=== PATIENT | female | born 1945 | race Caucasian/White ===

== ENCOUNTER 2024-09-08 09:24 | Outpatient (AMB) | payer OTHER, SELFPAY ==
--- NOTE | 2024-09-08 09:34 | A.OFFPC_ITS ---
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 Intake Note: establish care Is last menstrual period known: No Post menopausal: Yes Patient : No Allergies Penicillins Allergy (Intermediate, Verified 09/08/24 09:35) Hives Sulfa (Sulfonamide Antibiotics) Allergy (Intermediate, Verified 09/08/24 09:37) Hives azithromycin Adverse Reaction (Intermediate, Verified 09/08/24 09:37) Vomiting doxycycline Adverse Reaction (Intermediate, Verified 09/08/24 09:37) Vomiting Tobacco use date assessed: 09/08/24 Fall risk assessment: No Falls in past year Last assessed Fall Risk: 09/08/24 Dental Screening Dental Screen Date: 09/08/24 Did you have a dental visit in the last 12 months?: Yes Did you have a dental problem in the last 6 months where you did not have access to dental care?: No HPI HPI Comments History of Present Illness Details The patient is a 79-year-old female presenting with [facility] She transferred from [facility]. Her medical records have not yet been received. Her medical history includes essential hypertension, previously on amlodipine therapy, resulting in ankle edema, which improved with a transition to carvedilol 6.25 mg twice daily. The patient's hypertension has been more easily controlled since this modification, with recent readings at 130/80 mmHg. She has prediabetes, and she is interested in medication for prediabetes and weight management. Lifestyle modifications have been ineffective. Hyperlipidemia is managed with rosuvastatin at 5 mg, previously adjusted due to muscle cramping. There is a history of hypothyroidism with past vitamin D deficiency requiring high-dose supplementation. Osteopenia was suspected in the past, though not officially diagnosed by dual-energy x-ray absorptiometry (DXA) scanning; the last scan was more than 6-7 years ago, and the patient reports a loss of approximately 2 inches in height. The patient experiences lumbar spondylosis, scoliosis, compression, and herniated discs, leading to back pain and right hip pain initially diagnosed as bursitis but questioning the accuracy of this diagnosis. Interventions have included physical therapy, with variable results. Previous imaging could not identify any arthritis in the hips. She confirms regular cardiac follow-ups for a heart murmur, maintains routine mammography scheduling, and has had no recent ER or hospital visits aside from [facility] visits for right hip and back pain. We also discussed referral to Gynecology for an annual exam. She will contact Gynecology to schedule an appointment. Patient was informed and verbally consented to the use of an ambient scribe for clinic note documentation during this visit. ROS: - Musculoskeletal: Reports right hip ladonna n not alleviated by joint injection; reports back pain managed with physical therapy; denies any new musculoskeletal symptoms. - Gastrointestinal: Denies any new or wo rsening symptoms. - Neurological: Denies any recent change s in neurological symptoms. - Cardiovascular: Denies any recent ches t pain or palpitations. - Genitourinary: Denies any recent probl ems; past hysterectomy with an ovary left in situ. - Endocrine: Reports past vitamin D defi ciency. PE: Constitutional: Alert, in no distress. Head: Normocephalic. Neck: Supple, Full range of motion. No lymphadenopathy. No palpable thyroid masses. Respiratory: Clear to auscultation. Cardiovascular: S1 S2 regular. Systolic murmur noted. Neurologic: No focal neurological deficits. Extremities: Warm and well perfused. Trace bilateral ankle edema. Psychiatric: Normal mood and affect. [facility] Medical History (Updated 09/08/24 @ 14:16 by TYLER Villafana) Colon polyps Vitamin D deficiency Prediabetes Essential hypertension Hypothyroidism Arthritis Thyroid disease Aortic valvar stenosis Acid reflux Asthma Surgical History (Updated 09/08/24 @ 09:53 by Aliza Ward CMA) History of hand surgery Hx of appendectomy History of hysterectomy H/O rotator cuff surgery Family History (Updated 09/08/24 @ 09:57 by Aliza Ward CMA) Mother High blood pressure High cholesterol Colon cancer Father High blood pressure High cholesterol Prostate cancer Paternal Grandmother High blood pressure Brother High blood pressure High cholesterol Pancreatic cancer Sister High blood pressure High cholesterol Breast cancer Social History Housing: House Patient Tobacco Use Status: Never used Tobacco e-Cigarette/Vaping Use: Never Used Second Hand Smoke Exposure: No service: No Current occupational status: retired Current occupational exposures/hazards: No Cognitive needs: No Hearing needs: No Vision needs: Yes Questionnaire PHQ-9 Over the last 2 weeks, how often have you been bothered by any of the following problems? 1. Little interest or pleasure in doing things: not at all 2. Feeling down, depressed, or hopeless: not at all 3. Trouble falling or staying asleep, or sleeping too much: not at all 4. Feeling tired or having little energy: not at all 5. Poor appetite or overeating: not at all 6. Feeling bad about yourself - or that you are a failure or have let yourself or your family down: not at all 7. Trouble concentrating on things, such as reading the newspaper or watching television: not at all 8. Moving or speaking so slowly that other people could have noticed. Or the opposite - being so fidgety or restless that you have been moving around a lot more than usual: not at all 9. Thoughts that you would be better off or of hurting yourself in some way: not at all Total score: 0 Depression Screening Interpretation: Negative Depression Screening Done: Yes 83916 - PHQ-9 Billing: Yes Source: Developed by Drs. Michele Chahal, Charlotte Garcia, Axel Bianchi and colleagues, with an educational mo from [employer]. Thrive Questionnaire Date Thrive assessed: 09/07/24 I am a: Patient What is your living situation today?: I have a steady place to live Within the past 12 months, did the food you bought not last and you didn't have the money to get more?: Never true Within the past 12 months, did you worry whether your food would run out before you got money to buy more?: Never true Do you have trouble paying for medicines?: No Do you have trouble getting transportation to medical appointments?: No Do you have trouble paying your heating and electricity bill?: No Do you have trouble taking care of your child, family member or friend?: No Do you have trouble with day-to-day activities such as bathing, preparing meals, shopping, managing finances, etc.?: No Are you currently unemployed and looking for a job?: No Are you interested in more education?: No Please select the resources that you would like help with: None Currently or been in a relationship where the following occur: No concerns reported THRIVE Score: 0 AUDIT C Alcohol Use Questionnaire (AUDIT-C) 1. How often do you have a drink containing alcohol?: 4 or more times a week 2. How many drinks containing alcohol do you have on a typical day when you are drinking?: 1 or 2 3. How often do you have six or more drinks on one occasion?: Never Total Score: 4 FARNKI-7 AMB Questionnaire FRANKI-7 Date FRANKI - 7 assessed: 09/08/24 Feeling nervous, anxious, or on edge: 0 = Not at all Not being able to stop or control worryin = Not at all Worrying too much about different things: 0 = Not at all Trouble relaxin = Not at all Being so restless that it is hard to sit still: 0 = Not at all Becoming easily annoyed or irritable: 0 = Not at all Feeling afraid as if something awful might happen: 0 = Not at all Total FRANKI-7 score (0-4 normal; 5-9 mild; 10-14 moderate; 15-21 severe): 0 Source: Developed by Drs. Michele Chahal, Charlotte Garcia, Axel Biancih and colleagues, with an educational mo from [employer]. Physical exam (Primary Care) Vital Signs: Last Vital Signs Temp 98.1 F 09/08/24 09:58 Pulse 68 09/08/24 09:58 Resp 14 09/08/24 09:58 BP 130/80 09/08/24 09:58 Pulse Ox 98 09/08/24 09:58 Oxygen Delivery Method Room Air 09/08/24 09:58 BMI result Body Mass Index 30.6 Tobacco/Smoking Status: Tobacco use Status Tobacco use date assessed 09/08/24 09/08/24 10:00 Patient Tobacco Use Status Never used Tobacco 09/08/24 10:00 e-Cigarette/Vaping Use Never Used 09/08/24 10:00 PHQ-9: PHQ-9 Score PHQ-9: Total score 0 09/08/24 14:07 Depression Screening Interpretation: Negative Thrive Assessment: Date of Thrive Assessment Date Thrive assessed 09/07/24 09/08/24 10:00 Currently or been in a relationship where the following occur: No concerns reported Coding Level of Care Code Est Pt Level 4 (31991) Complex EM visit Add On G2211 Diagnoses Essential hypertension I10 Acquired hypothyroidism E03.9 Hypothyroidism type: acquired Arthritis M19.90 Prediabetes R73.03 Vitamin D deficiency E55.9 Nonrheumatic aortic valve stenosis I35.0 Cardiac valve disease etiology: nonrheumatic Additional Codes PHQ-9 - 26576 - PHQ-9 Billing: Yes ([id number]) Assessment & Plan Assessment & Plan (1) Essential hypertension: Code(s): I10 - Essential (primary) hypertension Category: Medical (2) Hypothyroidism: Code(s): E03.9 - Hypothyroidism, unspecified Category: Medical Qualifiers: Hypothyroidism type: acquired Qualified Code(s): E03.9 - Hypothyroidism, unspecified (3) Arthritis: Code(s): M19.90 - Unspecified osteoarthritis, unspecified site Category: Medical (4) Prediabetes: Code(s): R73.03 - Prediabetes Category: Medical (5) Vitamin D deficiency: Code(s): E55.9 - Vitamin D deficiency, unspecified Category: Medical (6) Aortic valvar stenosis: Code(s): I35.0 - Nonrheumatic aortic (valve) stenosis Category: Medical Qualifiers: Cardiac valve disease etiology: nonrheumatic Qualified Code(s): I35.0 - Nonrheumatic aortic (valve) stenosis Plan 1. Essential Hypertension, aortic valve stenosis: The patient?s blood pressure is well-controlled with the current medication regimen. Followed by Cardiology. 2. Prediabetes, obesity: Denies contraindications to GLP 1. Trial of Ozempic 0.25 mg weekly. Side effects and administration reviewed. 3. Hyperlipidemia: Continue rosuvastatin 5 mg with follow-up blood work ordered to assess lipid levels. 4. Gastroesophageal Reflux Disease: Continue current management; no changes discussed. 5. Hypothyroidism: Continued medication; thyroid function tests ordered. 6. Postmenopausal, vitamin-D deficiency: Scheduled for updated DXA scan and vitamin-D level ordered. 7. Lumbar Spondylosis and Right Hip Bursitis: Continue physical therapy; reassess hip pain management if no improvement is observed. Followed by [facility]. Follow up in 6 months. Orders: Orders TSH reflex Free T4 Today E03.9 - Hypothyroidism, unspecified Lipid Panel Today E78.5 - Hyperlipidemia, unspecified Complete Blood Count Auto Diff Today I10 - Essential (primary) hypertension, K21.9 - Gastro-esophageal reflux disease without esophagitis Vitamin D 1,25 dihydroxy Today E55.9 - Vitamin D deficiency, unspecified XR DEXA axial skeleton Today N95.1 - Menopausal and female climacteric states Hemoglobin A1c Today R73.03 - Prediabetes Comprehensive Met. Panel Today E55.9 - Vitamin D deficiency, unspecified, R73.03 - Prediabetes Medications: New semaglutide (Ozempic) for 4 weeks 0.25 mg (0.368 mL) subcut QWEEK 3 mL 0RF Patient Instructions: If insurance covers Ozempic and you start it, please call the office to schedule a 3 month follow up.
[2024-09-08 09:58] VITALS: BP 130/80; PULSE 68; RESP 14; TEMP 36.7; O2SAT 98; BMI 30.6
== END 2024-09-08 10:22 | disposition home or self-care (01) ==
PROVIDERS: PCP Physician Assistant Medical; Visit Provider Physician Assistant Medical
DX: I10 Essential (primary) hypertension (principal); E03.9 Hypothyroidism, unspecified; M19.90 Unspecified osteoarthritis, unspecified site; R73.03 Prediabetes; E55.9 Vitamin D deficiency, unspecified; I35.0 Nonrheumatic aortic (valve) stenosis

== ENCOUNTER → 2024-09-08 09:24 | Outpatient (BNVA) | payer OTHER, SELFPAY | PROVIDERS: PCP Physician Assistant Medical; Visit Provider Physician Assistant Medical | DX: I10 Essential (primary) hypertension (principal); E03.9 Hypothyroidism, unspecified; M19.90 Unspecified osteoarthritis, unspecified site; R73.03 Prediabetes; E55.9 Vitamin D deficiency, unspecified; I35.0 Nonrheumatic aortic (valve) stenosis; E78.5 Hyperlipidemia, unspecified; K21.9 Gastro-esophageal reflux disease without esophagitis; Z79.899 Other long term (current) drug therapy | CPT/HCPCS: 96127 ==

== ENCOUNTER 2024-09-08 10:29 | Outpatient (REF) | payer OTHER, SELFPAY ==
[2024-09-08 14:15] LABS: MANUAL DIFF FLAG NO
[2024-09-08 14:24] LABS: Basophils Percent Auto 0.6 % (0-2); Eosinophils Absolute Auto 0.2 X10*3/uL (0.0-0.4); Eosinophils Percent Auto 2.9 % (0-4); Hematocrit 40.4 % (37.0-47.0); Hemoglobin 13.6 g/dl (12.0-16.0); Imm Gran Abs Auto 0.02 X10*3/uL (0.00-0.03); Imm Gran Pct Auto 0.3 % (0.0-0.4); Lymphocytes Absolute Auto 2.3 X10*3/uL (1.2-4.9); Lymphocytes Percent Auto 34.8 % (20-40); Mean Corpuscular HGB Conc 33.7 g/dl (31.0-35.0); Mean Corpuscular Hemoglobin 32.1 pg (27.0-33.0); Mean Corpuscular Volume 95.3 fL (80.0-98.0); Monocytes Absolute Auto 0.6 X10*3/uL (0.1-1.2); Monocytes Percent Auto 8.6 % (2-11); Neutrophils Absolute Auto 3.5 x10*3/uL (2.0-8.3); Neutrophils Percent Auto 52.8 % (45-73); Platelet Count 254 X10*3/uL (160-400); Red Blood Count 4.24 X10*6/uL (4.20-5.50); White Blood Count 6.6 X10*3/uL (4.8-10.8)
[2024-09-08 14:30] LABS: Estimated Average Glucose 126 mg/dL; Hemoglobin A1C 149.4989 umol/L; Total Hemoglobin (HGBA1C) 3552.2948 umol/L
[2024-09-08 14:59] LABS: Alanine Aminotransferase 45 U/L (0-31); Albumin Level 4.3 g/dL (3.5-5.0); Alkaline Phosphatase 54 U/L (39-117); Anion Gap 10 (12-20); Aspartate Amino Transferase 40 U/L (5-31); Bilirubin Total 0.4 mg/dL (0.0-1.0); Blood Urea Nitrogen 17 mg/dL (9-16); Calcium 9.6 mg/dL (8.4-10.2); Carbon Dioxide 31 mmol/L (22-29); Chloride 102 mmol/L (96-108); Cholesterol 194 mg/dL (<200); Estimated Glomerular Filt Rate > 60; Glucose Random 122 mg/dL (60-115); HDL Cholesterol 56 mg/dL (>40); LDL Cholesterol Calculated 115 mg/dL (<100); Sodium 139 mmol/L (135-145); Total Protein 7.5 g/dL (6.5-8.0); Triglycerides 115 mg/dL (<150)
[2024-09-08 15:17] LABS: TSH reflex Free T4 1.07 uIU/mL (0.32-4.0)
[2024-09-12 07:54] LABS: VITAMIN D (1,25 OH) D3 40 pg/mL; Vit D (1,25-Dihydroxy) Total 40 pg/mL (18-72); Vitamin D (1,25 OH) D2 <8 pg/mL
== END 2024-09-08 10:30 | disposition home or self-care (01) ==
LOC: HO.WFDLDS 10:29
PROVIDERS: Visit Provider Physician Assistant Medical
DX: E78.5 Hyperlipidemia, unspecified (principal); E03.9 Hypothyroidism, unspecified; R73.03 Prediabetes; K21.9 Gastro-esophageal reflux disease without esophagitis; I10 Essential (primary) hypertension; E55.9 Vitamin D deficiency, unspecified
CPT/HCPCS: 36415; 80053; 80061; 82652; 83036; 84443; 85025

== ENCOUNTER 2024-10-10 11:42 | Outpatient (AMB) | payer MEDICARE, SELFPAY ==
--- NOTE | 2024-10-10 12:13 | MHC.OFFWIV ---
Intake Vital Signs 10/10/24 12:20 Height 5 ft 3 in Weight 171 lb 2 oz BMI 30.3 BP 134/68 Blood Pressure Location Lt brachial Position Sitting Respiration 12 Pulse 98 Pulse Source Pulse Oximeter Temp 101.0 F H Temp Source Oral Pulse Oximetry (%) 98 Oxygen Delivery Method Room Air Intake Visit Reasons: Urinary tract infection Intake Note: Patient complaining of burning, frequency, urgency urinating, and fever x 3 days. Patient took motrin and advil at 10am. 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 Required: No Allergies Penicillins Allergy (Intermediate, Verified 10/10/24 12:37) Hives Sulfa (Sulfonamide Antibiotics) Allergy (Intermediate, Verified 10/10/24 12:37) Hives azithromycin Adverse Reaction (Intermediate, Verified 10/10/24 12:37) Vomiting doxycycline Adverse Reaction (Intermediate, Verified 10/10/24 12:37) Vomiting Medication List - Last Reconciled 10/10/24 by MISSY Collier- aspirin (Adult Low Dose Aspirin) 81 mg PO DAILY vwickyo-bzakvcbia-tano tabs PO carvedilol 6.25 mg PO BID cholecalciferol (vitamin D3) 2,000 mcg PO QWEEK levothyroxine 100 mcg PO DAILY omeprazole 40 mg PO DAILY rosuvastatin 5 mg PO DAILY semaglutide (Ozempic) 0.25 mg (0.368 mL) subcut QWEEK trazodone 50 mg PO BEDTIME valsartan-hydrochlorothiazide 320-25 mg 1 tab PO DAILY vitamin B complex 1 cap PO DAILY Do you need a note to return to daycare/school/sports/work: No HPI HPI Comments History of Present Illness Details History - The patient is a 79-year-old female presenting with symptoms of a urinary tract infection characterized by urinary urgency, frequency, and dysuria beginning Thursday. - She reported a fever of 100.3?F at home managed with ibuprofen and Advil, rising to 101?F during the visit. - Last UTI occurred more than two decades ago. She used preventive hygiene post-intercourse previously. - Allergic reactions to various antibiotics, cephalexin has been tolerated. Denies n/v, abd pain, vaginal dc/itch. Physical Exam General: Awake, alert. No apparent distress Eyes: Sclera and conjunctiva clear bilaterally Cardiovascular: Regular rate and rhythm, + murmur No CVAT Abd soft, reports pressure over suprapubic area Results - Labs: Urinalysis shows the presence of leukocytes and blood; urine culture ordered for identification and antibiotic sensitivity testing. Discussion Notes During our discussion, I educated the patient on the likely bacterial nature of the urinary tract infection and the importance of taking her prescribed antibiotics, cephalexin, due to her intolerance to other antibiotics. I emphasized the importance of completing the full course and potential side effects, advising her to monitor for any allergic reactions. We discussed the benefits of fluids, Tylenol for fever reduction, and prompt medical attention if symptoms worsen. I explained that the urine culture results will guide further antibiotic choices, which may take 48 to 72 hours. I will communicate any changes through the patient portal. The patient was advised on the proper timing of antibiotic doses, and the patient acknowledged the instructions for managing her UTI. Assessment and Plan 1. Urinary Tract Infection (UTI): Prescribed cephalexin, to take one tablet twice daily for five days. Urine culture ordered to confirm organism and sensitivity; will adjust treatment based on results. Patient Instructions - Take cephalexin as prescribed, one tablet twice a day for five days with food. - Increase fluid intake and use Tylenol for fever management. - Monitor for any signs of allergic reaction; stop medication and seek immediate care if symptoms like hives or severe nausea occur. - Observe symptoms and seek medical attention if fever increases significantly or vomiting occurs. - Await urine culture results for any antibiotic changes and watch the patient portal for communication. Consent I explained the indication, dosage, and potential side effects of cephalexin thoroughly to the patient. I addressed the critical necessity of adherence to prescribed medication despite her known medication sensitivities. The patient provided verbal consent for the plan and intervention as described. I will notify the patient through the portal if there is a need to adjust the treatment based on culture results. Patient was informed and verbally consented to the use of an ambient scribe for clinic note documentation during this visit. Total time spent caring for the patient today was 30 minutes. This includes time spent before the visit reviewing the chart, time spent during the visit, and time spent after the visit on documentation, reviewing laboratory results, diagnostic imaging, medications, performing a medically necessary evaluation, counseling on diagnoses, care coordination, ordering appropriate tests, ordering appropriate medications, review of tests performed by other providers, reporting test results with the patient, communication with other healthcare providers. ON LICENSE OF [facility] Medical History (Updated 10/10/24 @ 12:53 by Nikki Beyer [facility]) Acid reflux Aortic valvar stenosis Arthritis Asthma Colon polyps Elevated liver enzymes Essential hypertension Hypothyroidism Prediabetes Thyroid disease Vitamin D deficiency Surgical History (Updated 09/08/24 @ 09:53 by Aliza Ward CMA) H/O rotator cuff surgery History of hand surgery History of hysterectomy Hx of appendectomy Family History (Updated 09/08/24 @ 09:57 by Aliza Ward CMA) Mother High blood pressure High cholesterol Colon cancer Father High blood pressure High cholesterol Prostate cancer Paternal Grandmother High blood pressure Brother High blood pressure High cholesterol Pancreatic cancer Sister High blood pressure High cholesterol Breast cancer Social History Housing: House Patient Tobacco Use Status: Never used Tobacco e-Cigarette/Vaping Use: Never Used Second Hand Smoke Exposure: No service: No Current occupational status: retired Current occupational exposures/hazards: No Cognitive needs: No Hearing needs: No Vision needs: Yes Physical Exam Vital Signs: Last Vital Signs Temp 101.0 F H 10/10/24 12:20 Pulse 98 10/10/24 12:20 Resp 12 10/10/24 12:20 BP 134/68 10/10/24 12:20 Pulse Ox 98 10/10/24 12:20 Oxygen Delivery Method Room Air 10/10/24 12:20 BMI result Body Mass Index 30.3 Results AMB Urinalysis, Automated UA Leukoctes 125 Simi/uL Last Edit by Jaqueline Dejesus on 10/10/24 12:48 UA Nitrite Negative Last Edit by Jaqueline Dejesus on 10/10/24 12:48 UA Urobilinogen 3.5 mg/dL Last Edit by Jaqueline Dejesus on 10/10/24 12:48 UA Protein 0.3 mg/dL Last Edit by Jaqueline Dejesus on 10/10/24 12:48 UA pH 5.5 Last Edit by Jaqueline Dejesus on 10/10/24 12:48 UA Blood 25 Jamil/uL Last Edit by Jaqueline Dejesus on 10/10/24 12:48 UA Specific [place] 1.015 Last Edit by Jaqueline Dejesus on 10/10/24 12:48 UA Ketone Negative Last Edit by Jaqueline Dejesus on 10/10/24 12:48 UA Bilirubin 0 mg/dL Last Edit by Jaqueline Dejesus on 10/10/24 12:48 UA Glucose 0 mg/dL Last Edit by Jaqueline Dejesus on 10/10/24 12:48 Assessment & Plan Assessment & Plan (1) UTI (urinary tract infection): Code(s): N39.0 - Urinary tract infection, site not specified Qualifiers: Urinary tract infection type: acute cystitis Hematuria presence: with hematuria Qualified Code(s): N30.01 - Acute cystitis with hematuria Plan . Orders: Orders Urine Culture Today N39.0 - Urinary tract infection, site not specified AMB Urinalysis Automated Today Z13.9 - Encounter for screening, unspecified Medications: New cephalexin i am aware of her allergies she has taken this before and done fine 500 mg PO Q12H 5 days 10 caps 0RF Coding Level of Care Code Est Pt Level 4 (42331) Diagnoses Acute cystitis with hematuria N30.01 Urinary tract infection type: acute cystitis Hematuria presence: with hematuria
[2024-10-10 12:20] VITALS: BP 134/68; PULSE 98; RESP 12; TEMP 38.3; O2SAT 98; BMI 30.3
--- OUTSIDE RECORDS SUMMARY | 2024-10-10 13:33 | XMS_ITS | Clinical Summary ---
Author Organization [facility] Facility Address [address] [place] [address] Care Team Providers Care Rn Relief Charge Name Role Phone Mily Lim PA-C Primary Care Provider [phone] Social History Tobacco Use Types Packs/Day Years Used Date Smoking Tobacco: Never Assessed Comments Unknown Sex and Gender Information Value Date Recorded Sex Assigned at Not on file Legal Sex Female 7:57 AM EDT Gender Identity Not on file Sexual Orientation Not on file Plan of Treatment Health Maintenance Due Date Last Done Comments Pneumococcal Vaccine: 65+ Ye ars (1 of 1 - PCV) 2011 Influenza Vaccine (#1) 2024 Hepatitis B Vaccine Aged Out No longe r eligible based on patient's age to complete this topic Insurance [facility] Care Teams Rn Relief Charge Relationship Specialty Start Date End Date Mily Lim PA-C [address] [place] [id number] PCP - General Internal Medicine 03/06/22
== END 2024-10-10 12:54 | disposition home or self-care (01) ==
LOC: HO.HMCWIW 11:42
PROVIDERS: PCP Physician Assistant Medical; Visit Provider Nurse Practitioner Family
DX: N30.01 Acute cystitis with hematuria (principal); Z13.9 Encounter for screening, unspecified

== ENCOUNTER 2024-10-10 11:42 | Outpatient (REF) | payer MEDICARE, SELFPAY ==
--- OUTSIDE RECORDS SUMMARY | 2024-10-10 14:23 | XMS_ITS | Clinical Summary ---
Author Organization [facility] Facility Address [address] [place] [address] Care Team Providers Care Lithograph Press Operator Tinware Name Role Phone Mily Lim PA-C Primary Care Provider [phone] Social History Tobacco Use Types Packs/Day Years [...] patient's age to complete this topic Insurance [facility] Care Teams Lithograph Press Operator Tinware Relationship Specialty Start Date End Date Mily Lim PA-C [address] [place] [id number] PCP - General Internal Medicine 03/06/22
== END 2024-10-10 11:43 | disposition home or self-care (01) ==
LOC: HO.LAB 11:42
PROVIDERS: PCP Physician Assistant Medical; Visit Provider Nurse Practitioner Family
DX: N39.0 Urinary tract infection, site not specified (principal); B96.20 Unspecified Escherichia coli [E. coli] as the cause of diseases classified elsewhere
CPT/HCPCS: 81003; 87086; 87088; 87186; 99212

== ENCOUNTER 2024-10-14 09:48 | Outpatient (REF) | payer MEDICARE, SELFPAY ==
--- NOTE | ~2024-10-14 | US_ITS ---
EXAMINATION: US ABDOMEN LIMITED WITH LIVER ELASTOGRAPHY HISTORY: R74.8 - Abnormal levels of other serum enzymes TECHNIQUE: Real-time grayscale ultrasound imaging of the right upper quadrant was performed and images were reviewed. COMPARISON: There are no prior studies for comparison. FINDINGS: Liver: The right lobe of the liver measures 15.7 cm in size. The left lobe of the liver measures 11.0 cm in size. The liver demonstrates increased echotexture, consistent with steatosis. There is focal fatty sparing adjacent to the gallbladder. No focal mass or intrahepatic biliary ductal dilatation is identified. There is normal hepatopedal flow in the portal vein. Ultrasound elastography of the liver was performed with 10 separate measurements of the liver parenchyma with the patient in the supine position. Measurements were obtained approximately 2 cm below Beena's capsule and perpendicular to the capsule. Images are of satisfactory quality. The median shear wave velocity is 1.77 m/s. The interquartile range/median (IQR/median) is 0.09. Gallbladder and biliary tree: The gallbladder is unremarkable, without evidence of calculi, wall thickening, or pericholecystic fluid. There is no sonographic Calderon sign. The common bile duct is normal in caliber measuring 4 mm. Right Kidney: The right kidney measures 10.5 cm in length and demonstrates a prominent column of Norm.. The right kidney is otherwise unremarkable, without evidence of masses, hydronephrosis, or calculi. Pancreas: The pancreatic head, neck, and body are unremarkable. The pancreatic tail is obscured by bowel gas. Abdominal aorta and inferior vena cava: The visualized portions of the abdominal aorta and inferior vena cava are normal in caliber. There is no free fluid in the right upper quadrant. US/US abdomen mcconnell w elastography IMPRESSION: Mild hepatomegaly. Hepatic steatosis. The median shear wave velocity is 1.77 m/s, corresponding to a median liver stiffness of 9.66 kPa. The IQR/median value is 0.09. This is indicative of a quality data set. Findings are indicative of a high elastography value suggestive of compensated advanced chronic liver disease. REFERENCE: Society of Radiologists in Ultrasound Liver Stiffness Thresholds (2020): LIVER STIFFNESS THRESHOLDS: *Shear wave velocity less than 1.3 m/s (Liver Stiffness equal or less than 5 kPa): High probability of being normal. *Shear wave velocity less than 1.7 m/s (Liver Stiffness less than 9 kPa): In the absence of other known clinical signs, rules out compensated advanced chronic liver disease. *Shear wave velocity between 1.7-2.1 m/s (Liver Stiffness 9-13 kPa): Suggestive of compensated advanced chronic liver disease but need further test for confirmation. *Shear wave velocity between 2.1-2.4 m/s (Liver Stiffness 13-17 kPa): Rules in compensated advanced chronic liver disease. *Shear wave velocity greater than 2.4 m/s (Liver Stiffness over 17 kPa): Suggestive of clinically significant portal hypertension. QUALITY OF DATA SET: *IQR/Median value equal or less than 0.15 implies a quality data set. *IQR/Median value over 0.15 implies a poor quality data set. SIGNIFICANT CHANGE FROM PRIOR EXAM: Significant change if liver stiffness measurement is 10% or greater from prior exam. OTHER CONSIDERATIONS: The stage of liver fibrosis may be overestimated in the setting of acute hepatitis, liver inflammation, elevated liver function tests, hepatic vascular congestion, obstructive cholestasis, non-fasting state, and infiltrative diseases such as amyloidosis and lymphoma. In some patients with NAFLD, the liver stiffness thresholds for compensated advanced chronic liver disease may be lower. In causes other than viral hepatitis and NAFLD, liver stiffness thresholds are not well established. Electronically signed by: Michele Parra MD 10/17/2024 07:14 AM [facility] [place]
--- OUTSIDE RECORDS SUMMARY | 2024-10-14 10:40 | XMS_ITS | Clinical Summary ---
Author Organization [facility] Facility Address [address] [place] [address] Care Team Providers Care Guest Services Lead Name Role Phone Mily Lim PA-C Primary Care Provider [phone] Social History Tobacco Use Types Packs/Day Years [...] patient's age to complete this topic Insurance [facility] Care Teams Guest Services Lead Relationship Specialty Start Date End Date Mily Lim PA-C [address] [place] [id number] PCP - General Internal Medicine 03/06/22
== END 2024-10-14 09:49 | disposition home or self-care (01) ==
LOC: HO.US 09:48
PROVIDERS: PCP Physician Assistant Medical; Visit Provider Physician Assistant Medical
DX: R74.8 Abnormal levels of other serum enzymes (principal)
CPT/HCPCS: 76705; 76981

== ENCOUNTER → 2024-10-14 09:49 | Outpatient (BNV) | payer MEDICARE, SELFPAY | PROVIDERS: PCP Physician Assistant Medical; Visit Provider Radiology Diagnostic Radiology | DX: K70.0 Alcoholic fatty liver (principal); R16.0 Hepatomegaly, not elsewhere classified | CPT/HCPCS: 76705 ==

== ENCOUNTER → 2024-10-18 10:00 | Outpatient (BNV) | payer MEDICARE, SELFPAY | PROVIDERS: PCP Physician Assistant Medical; Visit Provider Radiology Diagnostic Radiology | DX: E28.39 Other primary ovarian failure (principal) | CPT/HCPCS: 77080 ==

== ENCOUNTER 2024-10-18 10:04 | Outpatient (REF) | payer MEDICARE, SELFPAY ==
--- NOTE | ~2024-10-18 | MM_ITS ---
EXAMINATION: DXA BONE DENSITY AXIAL HISTORY: Estrogen deficiency TECHNIQUE: Bypass Mobile Dual energy absorptiometry (DEXA) of the lumbar spine, total left hip, and femoral neck was performed. COMPARISON: There are no prior studies for comparison. FINDINGS: The bone mineral density of the lumbar spine is 1.081 with a T-score of -0.7, and a Z-score of 0.7. The bone mineral density of the left total hip is 1.114 with a T-score of 0.8, and a Z-score of 2.5. The bone mineral density of the left femoral neck is 0.961 with a T-score of -0.6, and a Z-score of 13. FRACTURE RISK: The FRAX index suggests a risk of major osteoporotic fracture of 9.6%, and of hip fracture 1.4%. MM/XR DEXA axial skeleton IMPRESSION: Based on bone mineral density, and according to World Health Organization (WHO) criteria, the diagnosis is consistent with normal bone mineral density. All bone density values are in grams per centimeter squared (g/cm2). Statistically, 68% of repeat scans fall within 1 SD (+/- 0.010 g/cm2 for AP spine L1-L4) and 1 SD (+/- 0.012 g/cm2 for femur total) FRAX is a trademark of the [employer] Met[employer] Bone Disease, a World Health Organization (WHO) Collaborating Center. Electronically signed by: Michele Parra MD 10/21/2024 07:11 AM [facility]
--- OUTSIDE RECORDS SUMMARY | 2024-10-18 11:59 | XMS_ITS | Clinical Summary ---
Author Organization [facility] Facility Address [address] [place] [address] Care Team Providers Care Analyst Programmer Name Role Phone iMly Lim PA-C Primary Care Provider [phone] Social History Tobacco Use Types Packs/Day Years [...] age to complete this topic Insurance [facility] Care Teams Analyst Programmer Relationship Specialty Start Date End Date Mily Lim PA-C [address] [place] [id number] PCP - General Internal Medicine 03/06/22
== END 2024-10-18 10:05 | disposition home or self-care (01) ==
LOC: HO.MAMMO 10:04
PROVIDERS: PCP Physician Assistant Medical; Visit Provider Physician Assistant Medical
DX: Z13.820 Encounter for screening for osteoporosis (principal); Z78.0 Asymptomatic menopausal state
CPT/HCPCS: 77080

== ENCOUNTER 2024-10-27 10:25 | Outpatient (REF) | payer MEDICARE, SELFPAY ==
--- OUTSIDE RECORDS SUMMARY | 2024-10-27 13:01 | XMS_ITS | Clinical Summary ---
Author Organization [facility] Facility Address [address] [place] [address] Care Team Providers Care Steffen House Supervisor Name Role Phone Mily Lim PA-C Primary Care Provider [phone] Social History Tobacco Use Types Packs/Day Years [...] patient's age to complete this topic Insurance [facility] Care Teams Steffen House Supervisor Relationship Specialty Start Date End Date Mily Lim PA-C [address] [place] [id number] PCP - General Internal Medicine 03/06/22
[2024-10-27 14:45] LABS: Alanine Aminotransferase 39 U/L (0-31); Amylase 44 U/L (28-100); Aspartate Amino Transferase 38 U/L (5-31); Lipase 76 U/L (8-78)
[2024-10-28 04:03] LABS: HBS Num1 10.79 mIU/mL (0-7.99); HBc Num1 0.13 S/CO (0.00-0.79); HBsAGNum1 0.35 S/CO (0.00-0.99); Hepatitis A Antibody IgM 0.13 Index (0-0.79); Hepatitis B Core Antibody Nonreactive (Nonreactive); Hepatitis B Surface Antigen Negative (Negative); ~HepC Num1 0.17 S/CO (0.00-0.79); ~Hepatitis A Antibody IgM Nonreactive (Nonreactive); ~Hepatitis C Antibody Nonreactive (Nonreactive)
[2024-10-28 04:10] LABS: Hepatitis A Antibody IgM 0.15 Index (0-0.79); ~Hepatitis A Antibody IgM Nonreactive (Nonreactive)
[2024-10-28 05:11] LABS: HBS Num2 10.68 mIU/mL (0-7.99); ~Hepatitis B Surface Antibody GRAYZONE (Nonreactive)
== END 2024-10-27 10:26 | disposition home or self-care (01) ==
LOC: HO.WFDLDS 10:25
PROVIDERS: Visit Provider Physician Assistant Medical
DX: R74.8 Abnormal levels of other serum enzymes (principal); R79.89 Other specified abnormal findings of blood chemistry
CPT/HCPCS: 36415; 82150; 83690; 84450; 84460; 86704; 86706; 86709; 86803; 87340

== ENCOUNTER 2024-11-03 09:06 | Outpatient (AMB) | payer OTHER, SELFPAY ==
--- NOTE | 2024-11-03 09:17 | A.OFFPC_ITS ---
Vital Signs 11/03/24 09:25 Height 5 ft 3 in Weight 172 lb 8 oz BMI 30.6 BP 116/80 Blood Pressure Location Rt brachial Position Sitting Respiration 18 Pulse 79 Pulse Source Pulse Oximeter Pulse Oximetry (%) 94 Oxygen Delivery Method Room Air Intake Visit Reasons: Lab result - see comments Intake Note: Lab results Dross Puller Required: No Allergies Penicillins Allergy (Intermediate, Verified 11/03/24 09:17) Hives Sulfa (Sulfonamide Antibiotics) Allergy (Intermediate, Verified 11/03/24 09:17) Hives azithromycin Adverse Reaction (Intermediate, Verified 11/03/24 09:17) Vomiting doxycycline Adverse Reaction (Intermediate, Verified 11/03/24 09:17) Vomiting Tobacco use date assessed: 11/03/24 Fall risk assessment: No Falls in past year Last assessed Fall Risk: 11/03/24 Dental Screening Dental Screen Date: 09/08/24 HPI HPI Comments History of Present Illness Details The patient is a 79-year-old female with a past medical history of hepatic steatosis, elevated liver enzymes, aortic valve stenosis, vitamin-D deficiency, asthma, prediabetes, hypertension and hypothyroidism presenting for follow up. She was contacted by her wooden shade hardware installer after she had an echocardiogram. They left her a message that aortic stenosis is worse. She has a follow up with her wooden shade hardware installer next week. She has chronic dyspnea on exertion related to aortic stenosis, and she is okay with proceeding with surgery if it is recommended. She denies chest pain, syncope or ankle edema. Her medical history includes essential hypertension, previously on amlodipine therapy, resulting in ankle edema, which improved with a transition to carvedil ol 6.25 mg twice daily. The patient's hypertension has been more easily controlled since this modification, with recent readings at 130/80 mmHg. The patient had elevated liver enzymes. AST and ALT were 40 and 45 respectively on 09/08/2024. She repeated them on 10/27/2024, and they are now 38 and 39 respectively. Pancreatic enzymes are normal. She had negative testing for hepatitis a, B and C infection. She had an ultrasound with elastography on 10/14/2024 which demonstrated mild hepatomegaly habit, hepatic steatosis and elastography findings indicative of compensated advanced chronic liver disease. I referred her to Gastroenterology, but she would like to go to Dr. Stephen whom she sees for colonoscopy. She denies abdominal pain, nausea, vomiting and jaundice. She drinks 1-2 cocktails at night. She has prediabetes. Lifestyle modifications have been ineffective over the past 6 months. I prescribed Ozempic, and a prior authorization needs to be done for this. The pharmacy did not contact us, but they did contact the patient. Her most recent hemoglobin A1c was 6%. Hyperlipidemia is managed with rosuvastatin at 5 mg, previously adjusted due to muscle cramping. Hypothyroidism is treated with levothyroxine 100 mcg daily. The patient experiences lumbar spondylosis, scoliosis, compression, and herniated discs, leading to back pain and right hip pain initially diagnosed as bursitis but questioning the accuracy of this diagnosis. Interventions have included physical therapy, with variable results. Previous imaging could not identify any arthritis in the hips. ROS: - Musculoskeletal: See HPI - Gastrointestinal: Denies any new or wo rsening symptoms. - Neurological: Denies any recent change s in neurological symptoms. - Cardiovascular: Denies any recent ches t pain or palpitations. See HPI - Genitourinary: Denies any recent probl ems; past hysterectomy with an ovary left in situ. PE: Constitutional: Alert, in no distress. Head: Normocephalic. Neck: Supple, Full range of motion. No lymphadenopathy. No palpable thyroid masses. Respiratory: Clear to auscultation. Cardiovascular: S1 S2 regular. II/ Systolic murmur noted. Neurologic: No focal neurological deficits. Extremities: Warm and well perfused. Trace bilateral ankle edema. Psychiatric: Normal mood and affect. [facility] Medical History (Updated 11/03/24 @ 09:54 by TYLER Villafana) Abnormal abdominal CT scan Elevated LFTs Abnormal liver diagnostic imaging Hepatic steatosis Elevated liver enzymes Colon polyps Vitamin D deficiency Prediabetes Essential hypertension Hypothyroidism Arthritis Thyroid disease Aortic valvar stenosis Acid reflux Asthma Surgical History History of hand surgery Hx of appendectomy History of hysterectomy H/O rotator cuff surgery Family History Mother High blood pressure High cholesterol Colon cancer Father High blood pressure High cholesterol Prostate cancer Paternal Grandmother High blood pressure Brother High blood pressure High cholesterol Pancreatic cancer Sister High blood pressure High cholesterol Breast cancer Social History (Updated 11/03/24 @ 09:28 by CHANTELLE [place] Housing: House Alcohol intake: current Patient Tobacco Use Status: Former Tobacco user Cigarettes Per Day: 4 Years Smoked: 2 e-Cigarette/Vaping Use: Never Used Second Hand Smoke Exposure: No service: No Current occupational status: retired Current occupational exposures/hazards: No Cognitive needs: No Hearing needs: No Vision needs: Yes Questionnaire Thrive Questionnaire Date Thrive assessed: 11/03/24 I am a: Patient What is your living situation today?: I have a steady place to live Within the past 12 months, did the food you bought not last and you didn't have the money to get more?: Never true Within the past 12 months, did you worry whether your food would run out before you got money to buy more?: Never true Do you have trouble paying for medicines?: No Do you have trouble getting transportation to medical appointments?: No Do you have trouble paying your heating and electricity bill?: No Do you have trouble taking care of your child, family member or friend?: No Do you have trouble with day-to-day activities such as bathing, preparing meals, shopping, managing finances, etc.?: No Are you currently unemployed and looking for a job?: No Are you interested in more education?: No Please select the resources that you would like help with: None Currently or been in a relationship where the following occur: No concerns reported THRIVE Score: 0 AUDIT C Alcohol Use Questionnaire (AUDIT-C) 1. How often do you have a drink containing alcohol?: Monthly or less 2. How many drinks containing alcohol do you have on a typical day when you are drinking?: 1 or 2 3. How often do you have six or more drinks on one occasion?: Never Total Score: 1 FRANKI-7 AMB Questionnaire FRANKI-7 Date FRANKI - 7 assessed: 09/08/24 Source: Developed by Drs. Michele Chahal, Charlotte Garcia, Axel Bianchi and colleagues, with an educational mo from [employer]. Physical exam (Primary Care) Vital Signs: Last Vital Signs Pulse 79 11/03/24 09:25 Resp 18 11/03/24 09:25 BP 116/80 11/03/24 09:25 Pulse Ox 94 11/03/24 09:25 Oxygen Delivery Method Room Air 11/03/24 09:25 BMI result Body Mass Index 30.6 Tobacco/Smoking Status: Tobacco use Status Tobacco use date assessed 11/03/24 11/03/24 09:21 Patient Tobacco Use Status Former Tobacco user 11/03/24 09:28 e-Cigarette/Vaping Use Never Used 11/03/24 09:28 Thrive Assessment: Date of Thrive Assessment Date Thrive assessed 11/03/24 11/03/24 09:28 Currently or been in a relationship where the following occur: No concerns reported Coding Level of Care Code Est Pt Level 4 (90916) Complex EM visit Add On G2211 Diagnoses Essential hypertension I10 Acquired hypothyroidism E03.9 Hypothyroidism type: acquired Prediabetes R73.03 Nonrheumatic aortic valve stenosis I35.0 Cardiac valve disease etiology: nonrheumatic Assessment & Plan Assessment & Plan (1) Essential hypertension: Code(s): I10 - Essential (primary) hypertension Category: Medical Plan: Well-controlled. Continue low-sodium diet, avoidance of caffeine and current medication. (2) Hypothyroidism: Code(s): E03.9 - Hypothyroidism, unspecified Category: Medical Qualifiers: Hypothyroidism type: acquired Qualified Code(s): E03.9 - Hypothyroidism, unspecified Plan: Continue levothyroxine. (3) Prediabetes: Code(s): R73.03 - Prediabetes Category: Medical Plan: Complications of diabetes reviewed with the patient. Decrease carbs, sugars and portion sizes. Decrease alcohol use. Exercise to promote weight loss. Message will be sent to do prior authorization for Ozempic. (4) Aortic valvar stenosis: Code(s): I35.0 - Nonrheumatic aortic (valve) stenosis Category: Medical Qualifiers: Cardiac valve disease etiology: nonrheumatic Qualified Code(s): I35.0 - Nonrheumatic aortic (valve) stenosis Plan: She has a follow up with her wooden shade hardware installer next week since aortic stenosis has progressed. Plan She has a follow up scheduled with me. Orders: Referrals Gastroenterology Referral K76.0 - Fatty (change of) liver, not elsewhere classified, R79.89 - Other specified abnormal findings of blood chemistry, R93.2 - Abnormal findings on diagnostic imaging of liver and biliary tract Medications: New omeprazole 20 mg PO BID 180 caps 3RF
[2024-11-03 09:25] VITALS: BP 116/80; PULSE 79; RESP 18; O2SAT 94; BMI 30.6
--- OUTSIDE RECORDS SUMMARY | 2024-11-03 09:40 | XMS_ITS | Clinical Summary ---
Author Organization [facility] Facility Address [address] [place] [address] Care Team Providers Care Material Liaison Name Role Phone Mily Lim PA-C Primary Care Provider [phone] Social History Tobacco Use Types Packs/Day Years [...] patient's age to complete this topic Insurance [facility] Care Teams Material Liaison Relationship Specialty Start Date End Date Mily Lim PA-C [address] [place] [id number] PCP - General Internal Medicine 03/06/22
== END 2024-11-03 10:00 | disposition home or self-care (01) ==
LOC: HO.HMCFM 09:07
PROVIDERS: PCP Physician Assistant Medical; Visit Provider Physician Assistant Medical
DX: I10 Essential (primary) hypertension (principal); E03.9 Hypothyroidism, unspecified; R73.03 Prediabetes; I35.0 Nonrheumatic aortic (valve) stenosis

== ENCOUNTER → 2024-11-03 09:06 | Outpatient (BNVA) | payer OTHER, SELFPAY | PROVIDERS: PCP Physician Assistant Medical; Visit Provider Physician Assistant Medical ==

== ENCOUNTER 2025-03-16 08:49 | Outpatient (AMB) | payer OTHER, SELFPAY ==
--- NOTE | 2025-03-16 09:03 | A.OFFPC_ITS ---
Vital Signs 03/16/25 09:12 Height 5 ft 3 in Weight 152 lb BMI 26.9 BP 124/68 Blood Pressure Location Rt brachial Position Sitting Pulse 68 Pulse Source Pulse Oximeter Temp 97.4 F Temp Source Temporal Artery Scan Pulse Oximetry (%) 97 Oxygen Delivery Method Room Air Intake Visit Reasons: med review Intake Note: Melanie presents in the office today for a medication review. Urgency of voiding since starting new medication. Allergies Penicillins Allergy (Intermediate, Verified 03/16/25 09:06) Hives Sulfa (Sulfonamide Antibiotics) Allergy (Intermediate, Verified 03/16/25 09:06) Hives azithromycin Adverse Reaction (Intermediate, Verified 03/16/25 09:06) Vomiting doxycycline Adverse Reaction (Intermediate, Verified 03/16/25 09:06) Vomiting IVP Dye Allergy (Uncoded 03/16/25 09:06) Shortness of Breath Tobacco use date assessed: 03/16/25 Fall risk assessment: 1 Fall in past year Last assessed Fall Risk: 03/16/25 Dental Screening Dental Screen Date: 03/16/25 Did you have a dental visit in the last 12 months?: Yes Did you have a dental problem in the last 6 months where you did not have access to dental care?: No Was dental information given to patient?: Patient has dentist HPI HPI Comments History of Present Illness Details The patient is a 80-year-old female with a past medical history of hepatic steatosis, elevated liver enzymes, aortic valve stenosis, vitamin-D deficiency, asthma, prediabetes, hypertension and hypothyroidism presenting for follow up. Aortic stenosis-followed by Cardiology, Dr. Naidu. Part of Expand trial TAVR program. May have TAVR in march.. She has a stress test and CT scan scheduled this month. She has chronic dyspnea on exertion related to aortic stenosis. She denies chest pain, syncope or ankle edema. Hypertension-previously on amlodipine which resulted in ankle edema. Currently on carvedilol, Farxiga and Entresto. The patient had elevated liver enzymes. She reported drinking 1-2 cocktails per night. AST and ALT were 40 and 45 respectively on 09/08/2024. She repeated them on 10/27/2024, and they are now 38 and 39 respectively. Pancreatic enzymes are normal. She had negative testing for hepatitis a, B and C infection. She had an ultrasound with elastography on 10/14/2024 which demonstrated mild hepatomegaly, hepatic steatosis and elastography findings indicative of com pensated advanced chronic liver disease. She saw [facility] in November. They recommended working on a low-cholesterol diet and avoidance of alcohol. She had a follow up yesterday, and she was told the bloodwork looked great. She has prediabetes. She is taking Ozempic 0.25 mg weekly. She's lost 20 pounds since starting this medication. Hyperlipidemia is managed with rosuvastatin at 5 mg, previously adjusted due to muscle cramping. Hypothyroidism is treated with levothyroxine 100 mcg daily. Patient says that for months since starting Entresto, spironolactone and Farxiga she has experienced urinary frequency and urgency. No dysuria, hematuria, flank pain, fevers or chills. Patient says it is tolerable, but she wants to make sure she does not have an underlying UTI. The patient experiences lumbar spondylosis, scoliosis, compression, and herniated discs, leading to back pain and right hip pain. Interventions have included physical therapy, with variable results. ROS: - Musculoskeletal: See HPI - Gastrointestinal: Denies any new or wo rsening symptoms. - Neurological: Denies any recent change s in neurological symptoms. - Cardiovascular: Denies any recent ches t pain or palpitations. See HPI - Genitourinary: Denies any recent probl ems; past hysterectomy with an ovary left in situ. PE: Constitutional: Alert, in no distress. Head: Normocephalic. Neck: Supple, Full range of motion. No lymphadenopathy. No palpable thyroid masses. Respiratory: Clear to auscultation. Cardiovascular: S1 S2 regular. II/ Systolic murmur noted. Neurologic: No focal neurological deficits. Extremities: Warm and well perfused. Trace bilateral ankle edema. Psychiatric: Normal mood and affect. COUNTS INCLUDE 234 BEDS AT THE [facility] Medical History (Updated 11/03/24 @ 09:54 by TYLER Villafana) Abnormal abdominal CT scan Elevated LFTs Abnormal liver diagnostic imaging Hepatic steatosis Elevated liver enzymes Colon polyps Vitamin D deficiency Prediabetes Essential hypertension Hypothyroidism Arthritis Thyroid disease Aortic valvar stenosis Acid reflux Asthma Surgical History History of hand surgery Hx of appendectomy History of hysterectomy H/O rotator cuff surgery Family History Mother High blood pressure High cholesterol Colon cancer Father High blood pressure High cholesterol Prostate cancer Paternal Grandmother High blood pressure Brother High blood pressure High cholesterol Pancreatic cancer Sister High blood pressure High cholesterol Breast cancer Social History (Updated 03/16/25 @ 09:11 by Ashley Mckeon MA) Housing: House Alcohol intake: current Patient Tobacco Use Status: Former Tobacco user Cigarettes Per Day: 4 Years Smoked: 2 e-Cigarette/Vaping Use: Never Used Second Hand Smoke Exposure: No service: No Current occupational status: retired Current occupational exposures/hazards: No Cognitive needs: No Hearing needs: No Vision needs: Yes Questionnaire Thrive Questionnaire Date Thrive assessed: 11/03/24 I am a: Patient What is your living situation today?: I have a steady place to live Within the past 12 months, did the food you bought not last and you didn't have the money to get more?: Never true Within the past 12 months, did you worry whether your food would run out before you got money to buy more?: Never true Do you have trouble paying for medicines?: No Do you have trouble getting transportation to medical appointments?: No Do you have trouble paying your heating and electricity bill?: No Do you have trouble taking care of your child, family member or friend?: No Do you have trouble with day-to-day activities such as bathing, preparing meals, shopping, managing finances, etc.?: No Are you currently unemployed and looking for a job?: No Are you interested in more education?: No Please select the resources that you would like help with: None Currently or been in a relationship where the following occur: No concerns reported THRIVE Score: 0 FRANKI-7 AMB Questionnaire FRANKI-7 Date FRANKI - 7 assessed: 09/08/24 Source: Developed by Drs. Michele Chahal, Charlotte Garcia, Axel Bianchi and colleagues, with an educational mo from [employer]. Physical exam (Primary Care) Vital Signs: Last Vital Signs Temp 97.4 F 03/16/25 09:12 Pulse 68 03/16/25 09:12 BP 124/68 03/16/25 09:12 Pulse Ox 97 03/16/25 09:12 Oxygen Delivery Method Room Air 03/16/25 09:12 BMI result Body Mass Index 26.9 Tobacco/Smoking Status: Tobacco use Status Tobacco use date assessed 03/16/25 03/16/25 09:15 Patient Tobacco Use Status Former Tobacco user 03/16/25 09:11 e-Cigarette/Vaping Use Never Used 03/16/25 09:11 Thrive Assessment: Date of Thrive Assessment Date Thrive assessed 11/03/24 03/16/25 09:07 Currently or been in a relationship where the following occur: No concerns reported Coding Level of Care Code Est Pt Level 4 (23341) Complex EM visit Add On G2211 Diagnoses Essential hypertension I10 Acquired hypothyroidism E03.9 Hypothyroidism type: acquired Prediabetes R73.03 Nonrheumatic aortic valve stenosis I35.0 Cardiac valve disease etiology: nonrheumatic Hepatic steatosis K76.0 Urinary frequency R35.0 Assessment & Plan Assessment & Plan (1) Essential hypertension: Code(s): I10 - Essential (primary) hypertension Category: Medical Plan: Well-controlled. Continue low-sodium diet, avoidance of caffeine and current medication. (2) Hypothyroidism: Code(s): E03.9 - Hypothyroidism, unspecified Category: Medical Qualifiers: Hypothyroidism type: acquired Qualified Code(s): E03.9 - Hypothyroidism, unspecified Plan: Continue levothyroxine. (3) Prediabetes: Code(s): R73.03 - Prediabetes Category: Medical Plan: Complications of diabetes reviewed with the patient. Decrease carbs, sugars and portion sizes. Decrease alcohol use. Congratulated on weight loss. Check hemoglobin A1c. Continue Ozempic 0.25 mg weekly. Glucometer prescribed. Signs and symptoms and treatment of hypoglycemia reviewed with the patient. (4) Aortic valvar stenosis: Code(s): I35.0 - Nonrheumatic aortic (valve) stenosis Category: Medical Qualifiers: Cardiac valve disease etiology: nonrheumatic Qualified Code(s): I35.0 - Nonrheumatic aortic (valve) stenosis Plan: She is [facility]. (5) Hepatic steatosis: Code(s): K76.0 - Fatty (change of) liver, not elsewhere classified Category: Medical Plan: Followed by Gastroenterology. Continue efforts at weight loss. Continue GLP 1. Avoid alcohol. (6) Urinary frequency: Code(s): R35.0 - Frequency of micturition Plan: She could not provide a urine sample today. She will return for lab work tomorrow morning including UA and culture. If she develops dysuria, hematuria or other new symptoms she will contact the office. Symptoms could be related to Farxiga and/or spironolactone. Plan She will schedule a physical exam in 6 months. Orders: Orders TSH reflex Free T4 Today R73.03 - Prediabetes, R74.8 - Abnormal levels of other serum enzymes Comprehensive Met. Panel Today R73.03 - Prediabetes, R74.8 - Abnormal levels of other serum enzymes Lipid Panel Today E78.5 - Hyperlipidemia, unspecified, R73.03 - Prediabetes, R74.8 - Abnormal levels of other serum enzymes Hemoglobin A1c Today R73.03 - Prediabetes, R73.9 - Hyperglycemia, unspecified, R74.8 - Abnormal levels of other serum enzymes Urine Culture Today R39.9 - Unspecified symptoms and signs involving the genitourinary system UA w Microscopic Today R39.9 - Unspecified symptoms and signs involving the genitourinary system Medications: New blood-glucose meter (FreeStyle Lite Meter kit) to monitor blood glucose once daily 1 ea 0RF R73.03 - Prediabetes blood-glucose meter (FreeStyle Lite Meter kit) check glucose once daily 1 ea 0RF R73.03 - Prediabetes lancets (FreeStyle Lancets) to check glucose once daily 100 ea 5RF R73.03 - Prediabetes
--- OUTSIDE RECORDS SUMMARY | 2025-03-16 09:07 | XMS_ITS | Patient Health Record ---
[facility] Address [address] [place] [address] Care Team Providers Care Investigative Agent Name Role Phone Maryanne DAVID, Davida Primary Care Provider Unav Juan F Burroughs Unavailable [phone] Allergies Allergen (clinical drug ingredient) Drug/Non Drug Allergy documented on EMR Reaction Allergy Type Onset Date Status Cortisone Unknown Drug Allergy Active sulfa Unknown Drug Allergy Active Penicillin Unknown Drug Allergy Active Iodine iv injection Drug Allergy Acti ve Merthiolate iv injection Drug Allergy Ac tive Reason For Referral No Information Medications Medication SIG (Take, Route, Frequency, Duration) Notes Start Date End Date Status Simvastatin 40 MG Orally Once a day Active Vitamin E 100 UNIT 1 capsule Orally Onc e a day 03/07/2014 Active hydroCHLOROthiazide 25 MG 1 tablet Orally Once a day 03/07/2014 Active Omeprazole 20 MG 1 capsule Orally Onc e a day 03/07/2014 Active Aspir-81 81 MG 1 tablet Orally Once a day 03/07/20 14 Active Synthroid 112 MCG 1 tablet Orally Once a day Active Social History Tobacco use other than smoking: Question Answer Notes Are you an other tobacco user? No Plan Of Treatment Pending Test Test Name Order Date [id number] Destruction, -03/07/2014 [id number]-[id number] Destruction, 08-3003/31/2014 [id number]-Fqbp Destruction, -05/30/2014 [id number]-Erpj Destruction, -07/11/2014 Insurance Providers Payer Name Payer Address Payer Phone Subscriber Number Group Number Insured Name Patient Relationship to Insured Coverage Start Date Coverage End Date [facility] [address] [facility] [place] [address] [phone] [id number] Melanie Barillas Self - patient is the insured Medical (General) History Medical History History ICD Code Back and Hip pain Migraines Hypertension Reflux Measles Mumps Chicken pox Surgical History Surgery Date(Month/Year) hand/wrist 2012,2010 rotator cuff tear repair 2008 hysterectomy 1979 heel surgery 1968 appendectomy 1969
--- OUTSIDE RECORDS SUMMARY | 2025-03-16 09:07 | XMS_ITS | Clinical Summary ---
Author Organization [facility] Address [address] [place] [address] Phone Care Team Providers Care Kier Hand Name Role Phone Mily Lim Primary Care Provider [phone] Allergies Active Allergy Reactions Criticality Noted Date Comments Doxycycline Rash High 04/28/2022 Erythromycin Base Nausea And Vomiting High 2 Iodinated Contrast Media Rash High 04/28/2022 Penicillins Rash High 04/28/2022 Shrimp 04/28/2022 Other Reaction(s): SKIN RASH, ITCHY Sulfa (Sulfonamide Antibiotics) Rash High 04/28/2022 Medications levothyroxine (SYNTHROID, LEVOTHROID) 100 mcg tablet Take 1 tablet (100 mcg total) by mouth 1 (one) time each day. Active omeprazole (PriLOSEC) [address] capsule Take 1 capsule (20 mg total) by mouth 2 (two) times a day. 5 Active carvediloL (COREG) 6.25 mg tablet Take 1 tablet (6.25 mg total) by mouth. 4 Active Ozempic 0.25 mg or 0.5 mg (2 mg/3 mL) injection pen 0.25 MG (0.368 ML) SUBCUTANEOUSLY EVERY WEEK Active rosuvastatin (CRESTOR) 5 mg tablet Take 1 tablet (5 mg total) by mouth 1 (one) time each day. 5 Active traZODone (DESYREL) 50 mg tablet Take 1 tablet (50 mg total) by mouth. at bedtime. Active aspirin 81 mg EC tablet Take 1 tablet (81 mg total) by mouth. Active Farxiga 10 mg tablet Take 1 tablet (10 mg total) by mouth 1 (one) time each day. Active multivitamin with minerals (MULTIPLE VITAMIN-MINERA LS ORAL) Daily, 0 Refills, 11/16/07 11:49:53 AM EDT 8 Active cholecalcifero l (Vitamin D3) 50 mcg (2,000 unit) capsule Take 2,000 Int'l Units by mouth. 6 Active sacubitril/merle sartan (ENTRESTO ORAL) Take 20 mg by mouth. Active spironolactone (ALDACTONE) 25 mg tablet Take 0.5 tablets (12.5 mg total) by mouth. Active Encounters Date Type Department Care Team Description 03/15/2025 9:40 AM EDT Office Visit Gastroenterology - [address] [address] Mihaela Glez PA Abnormal LFTs (Primary Dx) 12/22/2024 Telephone Gastroenterology - [address] [phone] aKylan Mcgovern MA Results 12/22/2024 Telephone Gastroenterology - [address] [phone] Karin Barragan MA 12/21/2024 Telephone Gastroenterology - [address] [address] Jory Patterson MA from Last 3 Months Surgical History Surgery Date Site/Laterality Comments COLONOSCOPY 04/17/2022 - 05/16/2022 TA x 2, left tics Difficult colon Dr. Stephen Social History Tobacco Use Types Packs/Day Years Used Date Smoking Tobacco: Former Cigarettes 1 967 - 1963 Smokeless Tobacco: Former Tobacco Cessation:Counseling Given: Not Answered Alcohol Use Standard Drinks/Week Comments Yes 0 (1 standard drink = 0.6 oz pur e alcohol) socially Comments Unknown Sex and Gender Information Value Date Recorded Sex Assigned at Not on file Legal Sex Female 10:24 AM EST Gender Identity Not on file Sexual Orientation Not on file Obstetrics History Last Filed Vital Signs Vital Sign Reading Time Taken Comments Blood Pressure - - Pulse - - Temperature - - Respiratory Rate - - Oxygen Saturation - - Inhaled Oxygen Concentration - - Weight 69.9 kg (154 lb 3.2 oz) 03/15/2025 9:24 A M EDT Height 160 cm (5' 3 ) 03/15/2025 9:24 AM EDT Body Mass Index 27.32 03/15/2025 9:24 AM EDT Plan of Treatment Health Maintenance Due Date Last Done Comments DTaP,Tdap,and Td Vaccines (1 - Tdap) 1965 Hepatitis A Vaccines (1 of 2 - Risk 2-dose series) 1965 Zoster Vaccines (1 of 2) 1996 Hepatitis B Vaccines (1 of 3 - Risk 3-dose series) 2006 RSV Immunization Adult Patients (1 - 1-dose 75+ series) 2021 Cholesterol Screening (Lipid Panel) 07/15/2022 Falls Risk Assessment 07/15/2022 Osteoporosis Screening (Bone Density Screening) 07/15/2022 Social Influencers of Health Screening 07/15/2022 Depression Screening 08/17/2024 COVID-19 Vaccine ( season) 2024 05/25/2024, 06/23/2023, 05/12/2022, Additional history exists Influenza Vaccine (#1) 2025 , 06/23/2023, 05/12/2022, Additional history exists Hypertension/CHF/CAD Annual BMP Blood Test 12/13/2025 12/13/2024 Pneumococcal Vaccine: 50+ Years Completed 07/05/2020, 08/19/2019 Hepatitis C Screening Completed 12/13/2024 HIB Vaccines Aged Out No longer eligi ble based on patient's age to complete this topic HPV Vaccines Aged Out No longer eligi ble based on patient's age to complete this topic IPV Vaccines Aged Out No longer eligi ble based on patient's age to complete this topic MMR Vaccines Aged Out No longer eligi ble based on patient's age to complete this topic Meningococcal ACWY Vaccine Aged Out N o longer eligible based on patient's age to complete this topic Meningococcal B Vaccine Aged Out No l onger eligible based on patient's age to complete this topic RSV Immunization Patients Under 20 months Aged Out No longer eligible based on patient's age to complete this topic Varicella Vaccines Aged Out No longer eligible based on patient's age to complete this topic Procedures Procedure Name Priority Date/Time Associated Diagnosis Comments EXTERNAL COLONOSCOPY REPORT Routine 12/14/2024 8:12 AM EDT HEPATITIS C VIRUS QUANTITATIVE PCR Routine 12/13/2024 12:11 PM EDT Abnormal LFTs COMPREHENSIVE METABOLIC PANEL Routine 12/13/2024 12:11 PM EDT Abnormal LFTs from Last 3 Months or Most Recently Relevant to Health Maintenance Results * External Colonoscopy Report (12/14/2024 8:12 AM EDT) Anatomical Region Laterality Modality Endoscopy Historical Provider GI~PROCEDURE ORDERABLES F inal Result * Hepatitis C virus quantitative molecular study (12/13/2024 12:11 PM EDT) Pathologist [facility] HCV Qual Interp Not Detected Not Detected LAB MOLECULAR DIAGNOSTICS METHOD 12/13/2024 3:48 PM EDT [facility] Comment:HCV RNA not detected , unable to report quantitative results. Blood Venous blood specimen / Unknown Venipuncture / Unknown 12/13/2024 12:11 PM EDT 12/13/2024 12:35 PM EDT Daphney Rodriguez HEEL ATTACHER LAB BLOOD ORDERABLES Final Re sult [facility] [address] [place] [address], * (ABNORMAL) Comprehensive metabolic panel (12/13/2024 12:11 PM EDT) [facility] Sodium 142 133 - 145 mmol/L LAB CHEMISTRY METHOD 12/13/2024 2:47 PM EDT [facility] Potassium 4.1 3.5 - 5.5 mmol/L LAB CHEMISTRY METHOD 12/13/2024 2:47 PM EDT [facility] Chloride 106 96 - 110 mmol/L LAB CHEMISTRY METHOD 12/13/2024 2:47 PM [facility] CO2 27 21 - 32 mmol/L LAB CHEMISTRY METHOD 12/13/2024 2:47 PM [facility] Anion Gap 9 3 - 11 LAB CHEMISTRY METHOD 12/13/2024 2:47 PM [facility] Glucose 110(H) 70 - 100 mg/dL LAB CHEMISTRY METHOD 12/13/2024 2:47 PM [facility] BUN 15 5 - 25 mg/dL LAB CHEMISTRY METHOD 12/13/2024 2:47 PM [facility] Creatinine 1.05 0.50 - 1.10 mg/dL LAB CHEMISTRY METHOD 12/13/2024 2:47 PM [facility] eGFR 54(L) >=60 mL/min/1. 73m2 LAB CHEMISTRY METHOD 12/13/2024 2:47 PM [facility] Comment:Calculation based on the Chronic Kidney Disease Epidemiology Collaboration (CKD-EPI) equation refit without adjustment for race. BUN/Creatinine Ratio 14.3 LAB CHEMISTRY METHOD 12/13/2024 2:47 PM [facility] Calcium 9.1 8.5 - 10.5 mg/dL LAB CHEMISTRY METHOD 12/13/2024 2:47 PM [facility] AST (SGOT) 30 10 - 42 unit/L LAB CHEMISTRY METHOD 12/13/2024 2:47 PM [facility] ALT (SGPT) 44 10 - 60 unit/L LAB CHEMISTRY METHOD 12/13/2024 2:47 PM [facility] Alkaline Phosphatase 50 42 - 121 unit/L LAB CHEMISTRY METHOD 12/13/2024 2:47 PM [facility] Total Protein 7.0 6.0 - 8.0 g/dL LAB CHEMISTRY METHOD 12/13/2024 2:47 PM [facility] Albumin 3.8 3.2 - 5.0 g/dL LAB CHEMISTRY METHOD 12/13/2024 2:47 PM EDT [facility] Total Bilirubin 0.4 0.0 - 1.4 mg/dL LAB CHEMISTRY METHOD 12/13/2024 2:47 PM EDT [facility] Blood Venous blood specimen / Unknown Venipuncture / Unknown 12/13/2024 12:11 PM EDT 12/13/2024 12:35 PM EDT us Daphney Rodriguez HEEL ATTACHER LAB BLOOD ORDERABLES Final Re sult [facility] ([facility]) [facility] [address] [place] [address], [place] [phone] from Last 3 Months or Most Recently Relevant to Health Maintenance Insurance [facility] MEDICAID ADVANTAGE Care Teams Kier Hand Relationship Specialty Start Date End Date Mily Lim PA [address] [place] [address] PCP - General Physician Saturator Operator 11/10/24
--- OUTSIDE RECORDS SUMMARY | 2025-03-16 09:07 | XMS_ITS | Clinical Summary ---
Author Organization [facility] Facility Address [address] [place] [address] Care Team Providers Care Paper Cup Machine Tender Name Role Phone Mily Lim PA-C Primary Care Provider [phone] Social History Tobacco Use Types Packs/Day Years Used Date Smoking Tobacco: Never Assessed Comments Unknown Sex and Gender Information Value Date Recorded Sex Assigned at Not on file Legal Sex Female 7:57 AM EDT Gender Identity Not on file Sexual Orientation Not on file Plan of Treatment Health Maintenance Due Date Last Done Comments Pneumococcal Vaccine: 50+ Ye ars (1 of 1 - PCV) 1996 Influenza Vaccine (#1) 2025 Hepatitis B Vaccine Aged Out No longe r eligible based on patient's age to complete this topic Insurance [facility] Care Teams Paper Cup Machine Tender Relationship Specialty Start Date End Date Mily Lim PA-C [address] [place] [id number] PCP - General Internal Medicine 03/06/22
[2025-03-16 09:12] VITALS: BP 124/68; PULSE 68; TEMP 36.3; O2SAT 97; BMI 26.9
== END 2025-03-16 09:31 | disposition home or self-care (01) ==
LOC: HO.HMCFM 08:50
PROVIDERS: PCP Physician Assistant Medical; Visit Provider Physician Assistant Medical
DX: I10 Essential (primary) hypertension (principal); E03.9 Hypothyroidism, unspecified; R73.03 Prediabetes; I35.0 Nonrheumatic aortic (valve) stenosis; K76.0 Fatty (change of) liver, not elsewhere classified; R35.0 Frequency of micturition

== ENCOUNTER 2025-03-17 10:11 | Outpatient (REF) | payer OTHER, SELFPAY ==
--- OUTSIDE RECORDS SUMMARY | 2025-03-17 10:20 | XMS_ITS | Clinical Summary ---
Author Organization [facility] 299 [facility] Address [address] [place] [address] Phone Care Team Providers Care Manager Implementation Name Role Phone Mily Lim Primary Care Provider [phone] Allergies Active Allergy Reactions Criticality Noted Date [...] AM EDT Office Visit Gastroenterology - [address] [phone] Mihaela Glez PA Abnormal LFTs (Primary Dx) 12/22/2024 Telephone Gastroenterology - [address] [phone] Kaylan Mcgovern MA Results 12/22/2024 Telephone Gastroenterology - [address] [phone] Karin Barragan MA 12/21/2024 Telephone Gastroenterology - [address] [phone] Jory Patterson MA from Last 3 Months [...] Procedure Name Priority Date/Time Associated Diagnosis Comments HEPATITIS C VIRUS QUANTITATIVE PCR Routine 12/13/2024 12:11 PM EDT Abnormal LFTs COMPREHENSIVE METABOLIC PANEL Routine 12/13/2024 12:11 PM EDT Abnormal LFTs from Last 3 Months or Most Recently Relevant to Health Maintenance Results * Hepatitis C virus quantitative molecular study (12/13/2024 12:11 PM EDT) [facility] HCV Qual Interp Not Detected Not Detected LAB MOLECULAR DIAGNOSTICS METHOD 12/13/2024 3:48 PM EDT [facility] Comment:HCV RNA not detected , unable to report quantitative results. Blood Venous blood specimen / Unknown Venipuncture / Unknown 12/13/2024 12:11 PM EDT 12/13/2024 12:35 PM EDT us Daphney Rodriguez ORACLE ERP DEVELOPER LAB BLOOD ORDERABLES Final Re sult [facility] [address] [place] [address], [place] [phone] * (ABNORMAL) Comprehensive metabolic panel (12/13/2024 12:11 PM EDT) [facility] Sodium 142 133 - 145 mmol/L LAB CHEMISTRY METHOD 12/13/2024 2:47 PM EDT [facility] Potassium 4.1 3.5 - 5.5 mmol/L LAB CHEMISTRY METHOD 12/13/2024 2:47 PM EDT [facility] Chloride 106 96 - 110 mmol/L LAB CHEMISTRY METHOD 12/13/2024 2:47 PM EDT [facility] CO2 27 21 - 32 mmol/L LAB CHEMISTRY METHOD 12/13/2024 2:47 PM EDT [facility] Anion Gap 9 3 - 11 LAB CHEMISTRY METHOD 12/13/2024 2:47 PM [facility] Glucose 110(H) 70 - 100 mg/dL LAB CHEMISTRY METHOD 12/13/2024 2:47 PM [facility] BUN 15 5 - 25 mg/dL LAB CHEMISTRY METHOD 12/13/2024 2:47 PM [facility] Creatinine 1.05 0.50 - 1.10 mg/dL LAB CHEMISTRY METHOD 12/13/2024 2:47 PM [facility] eGFR 54(L) >=60 mL/min/1. 73m2 LAB CHEMISTRY METHOD 12/13/2024 2:47 PM [facility] Comment:Calculation based on the Chronic Kidney Disease Epidemiology Collaboration (CKD-EPI) equation refit without adjustment for race. BUN/Creatinine Ratio 14.3 LAB CHEMISTRY METHOD 12/13/2024 2:47 PM [facility] Calcium 9.1 8.5 - 10.5 mg/dL LAB CHEMISTRY METHOD 12/13/2024 2:47 PM [facility] AST (SGOT) 30 10 - 42 unit/L LAB CHEMISTRY METHOD 12/13/2024 2:47 PM [facility] ALT (SGPT) 44 10 - 60 unit/L LAB CHEMISTRY METHOD 12/13/2024 2:47 PM [facility] Alkaline Phosphatase 50 42 - 121 unit/L LAB CHEMISTRY METHOD 12/13/2024 2:47 PM [facility] Total Protein 7.0 6.0 - 8.0 g/dL LAB CHEMISTRY METHOD 12/13/2024 2:47 PM [facility] Albumin 3.8 3.2 - 5.0 g/dL LAB CHEMISTRY METHOD 12/13/2024 2:47 PM [facility] Total Bilirubin 0.4 0.0 - 1.4 mg/dL LAB CHEMISTRY METHOD 12/13/2024 2:47 PM EDT [facility] Blood Venous blood specimen / Unknown Venipuncture / Unknown 12/13/2024 12:11 PM EDT 12/13/2024 12:35 PM EDT us Daphney Rodriguez ORACLE ERP DEVELOPER LAB BLOOD ORDERABLES Final Re sult [facility] [address] [place] [address], from Last 3 Months or Most Recently Relevant to Health Maintenance Insurance [employer] Care Teams Manager Implementation Relationship Specialty Start Date End Date Mily Lim PA [address] [place] [id number] PCP - General Physician Thermospray Operator 11/10/24
--- OUTSIDE RECORDS SUMMARY | 2025-03-17 10:20 | XMS_ITS | Patient Health Record ---
Author [facility] Address [address] [place] [address] Care Team Providers Care Vp Product Name Role Phone Maryanne DAVID, Davida Primary Care Provider Unav Juan F Burroughs Unavailable [phone] Allergies Allergen (clinical drug ingredient) Drug/Non Drug [...] Treatment Pending Test Test Name Order Date [id number] Destruction, -03/07/2014 [id number] Destruction, -03/31/2014 [id number] Destruction, -05/30/2014 [id number] Destruction, -07/11/2014 Insurance Providers Payer Name Payer Address Payer Phone Subscriber Number Group Number Insured Name Patient Relationship to Insured Coverage Start Date Coverage End Date [facility] [address] [place] [address] [phone] [id number] Melanie Barillas Self - patient is the insured Medical (General) History Medical History History ICD Code Back and Hip pain Migraines Hypertension Reflux Measles Mumps Chicken pox Surgical History Surgery Date(Month/Year) hand/wrist 2012,2010 rotator cuff tear repair 2008 hysterectomy 1979 heel surgery 1968 appendectomy 1969
--- OUTSIDE RECORDS SUMMARY | 2025-03-17 10:20 | XMS_ITS | Clinical Summary ---
Author Organization [facility] Address [address] [place] [address] Care Team Providers Care Flag Football Coach Name Role Phone Mily Lim PA-C Primary Care Provider [phone] Social History Tobacco Use Types Packs/Day Years [...] patient's age to complete this topic Insurance [facility] Care Teams Flag Football Coach Relationship Specialty Start Date End Date Mily Lim PA-C [address] [place] [id number] PCP - General Internal Medicine 03/06/22
[2025-03-17 12:36] LABS: Hemoglobin A1C 135.4330 umol/L; Total Hemoglobin (HGBA1C) 3635.4487 umol/L
[2025-03-17 12:43] LABS: Appearance Urine Cloudy; Glucose Urine UA >=1000 mg/dL (Negative); PH 6.0 (5.0-9.0); Specific Gravity - Urine 1.020 (1.005-1.025); UMIC TRIGGER UA YES
[2025-03-17 13:24] LABS: Alanine Aminotransferase 30 U/L (0-31); Albumin Level 4.3 g/dL (3.5-5.0); Alkaline Phosphatase 50 U/L (39-117); Anion Gap 11 (12-20); Aspartate Amino Transferase 26 U/L (5-31); Blood Urea Nitrogen 17 mg/dL (9-16); Calcium 9.1 mg/dL (8.4-10.2); Carbon Dioxide 30 mmol/L (22-29); Chloride 104 mmol/L (96-108); Cholesterol 187 mg/dL (<200); Estimated Glomerular Filt Rate 56; HDL Cholesterol 51 mg/dL (>40); Potassium 4.2 mmol/L (3.3-5.1); Sodium 141 mmol/L (135-145); Total Protein 6.8 g/dL (6.5-8.0); Triglycerides 133 mg/dL (<150)
== END 2025-03-17 10:12 | disposition home or self-care (01) ==
LOC: HO.WFDLDS 10:11
PROVIDERS: Visit Provider Physician Assistant Medical
DX: R73.03 Prediabetes (principal); R74.8 Abnormal levels of other serum enzymes; R39.9 Unspecified symptoms and signs involving the genitourinary system; R73.9 Hyperglycemia, unspecified; E78.5 Hyperlipidemia, unspecified
CPT/HCPCS: 36415; 80053; 80061; 81001; 83036; 84443; 87086; 87088; 87186

== ENCOUNTER 2025-04-27 11:17 | Outpatient (AMB) | payer OTHER, SELFPAY ==
[2025-04-27 11:20] VITALS: BP 114/62; PULSE 85; TEMP 36.7; O2SAT 98; BMI 27.1
--- NOTE | 2025-04-27 11:20 | AM.OFFWIN_ITS ---
Intake Vital Signs 3 04/27/25 11:20 Height 5 ft 3 in Weight 153 lb BMI 27.1 BP 114/62 Blood Pressure Location Lt brachial Position Sitting Pulse 85 Pulse Source Pulse Oximeter Temp 98.0 F Temp Source Oral Pulse Oximetry (%) 98 Oxygen Delivery Method Room Air Intake Visit Reasons: ep small infection in lower abdomen/middle abdomen Intake Note: Pt presents with enlarging, raising and hardening red lesion with bruising on lower abdominal area/pubic area Thursday- transaortic valve replacement [facility], had red kodak above umbilical- gettig redder and larger Patient Tobacco Use Status: Former Tobacco user Allergies Penicillins Allergy (Intermediate, Verified 04/27/25 11:22) Hives Sulfa (Sulfonamide Antibiotics) Allergy (Intermediate, Verified 04/27/25 11:22) Hives erythromycin base Allergy (Mild, Verified 04/27/25 11:29) Hives azithromycin Adverse Reaction (Intermediate, Verified 04/27/25 11:22) Vomiting doxycycline Adverse Reaction (Intermediate, Verified 04/27/25 11:22) Vomiting IVP Dye Allergy (Uncoded 03/16/25 09:06) Shortness of Breath Do you need a note to return to daycare/school/sports/work: No HPI HPI Comments 2 History of Present Illness0 Details 80 y/o Female patient who presents to [facility] walk in clinic with c/o erythematous skin lesion on her Groin since Thursday. Pt had TVR (through the Groin) Thursday for Aortic Stenosis with Valve replacement. Pt noticed the area prior to the Procedure but the Cardiothoracic surgeon was not concerned about it. Pt worried it might be Cellulitis and does not want to spread to her new Valve. Pt was treated pre/post procedure with Ancef with no reaction. Pt has multiple Abx allergies (See List). Pt asking for Abx today. [facility] Medical History (Updated 04/27/25 @ 11:46 by Abbi Randle NP) Rash Abnormal abdominal CT scan Elevated LFTs Abnormal liver diagnostic imaging Hepatic steatosis Elevated liver enzymes Colon polyps Vitamin D deficiency Prediabetes Essential hypertension Hypothyroidism Arthritis Thyroid disease Aortic valvar stenosis Acid reflux Asthma Surgical History History of hand surgery Hx of appendectomy History of hysterectomy H/O rotator cuff surgery Family History Mother High blood pressure High cholesterol Colon cancer Father High blood pressure High cholesterol Prostate cancer Paternal Grandmother High blood pressure Brother High blood pressure High cholesterol Pancreatic cancer Sister High blood pressure High cholesterol Breast cancer Social History (Updated 03/16/25 @ 09:11 by Ashley Mckeon MA) Housing: House Alcohol intake: current Patient Tobacco Use Status: Former Tobacco user Cigarettes Per Day: 4 Years Smoked: 2 e-Cigarette/Vaping Use: Never Used Second Hand Smoke Exposure: No service: No Current occupational status: retired Current occupational exposures/hazards: No Cognitive needs: No Hearing needs: No Vision needs: Yes Review of Systems Const All systems reviewed & are unremarkable except as noted in HPI and below Physical Exam Vital Signs: Last Vital Signs Temp 98.0 F 04/27/25 11:20 Pulse 85 04/27/25 11:20 BP 114/62 04/27/25 11:20 Pulse Ox 98 04/27/25 11:20 Oxygen Delivery Method Room Air 04/27/25 11:20 BMI result Body Mass Index 27.1 Const General: no acute distress Nutritional Appearance: obese Orientation/consciousness: patient oriented x3 Skin General skin exam: dry skin, ecchymosis and erythema Full body images: 2 1. Small Circular erythematic lesion groin region - skin dry with crusting center. She does have visible ecchymosis around the surgical site - mild tenderness. Neuro General: patient oriented x3, gait normal and moves all extremities Psych Speech and movement: Normal speech and movement present Assessment & Plan Assessment & Plan (1) Rash: Code(s): R21 - Rash and other nonspecific skin eruption Plan: DDx's: Cellulitis vs Rebekah vs Allergic Dermatitis vs Folliculitis. The lesion was there prior to the procedure - not sure the etiology. Ordered Doxy Empirically to Treat poss skin infection. Pt has multiple Drug Allergies (Abx). Advised to take Doxy in full stomach to avoid GI Upset. RTC if Rash/Lesion not improved. Medications: New 2 doxycycline hyclate 100 mg PO BID 10 caps 0RF 5 days R21 - Rash and other nonspecific skin eruption Coding Level of Care Code Est Pt Level 4 (18326) Diagnoses Rash R21 Time Spent (min) 20
--- OUTSIDE RECORDS SUMMARY | 2025-04-27 15:34 | XMS_ITS | Clinical Summary ---
Author Organization [facility] 299 [facility] Address [address] [place] [address] Phone Care Team Providers Care Shingle Sawyer Name Role Phone Mily Lim Primary Care Provider Allergies Active Allergy Reactions Criticality Noted Date [...] 0.5 tablets (12.5 mg total) by mouth. 5 Active Encounters Date Type Department Care Team Description 03/15/2025 9:40 AM EDT Office Visit Gastroenterology - 299 [facility] 299 [facility] [address] [place] [address] Mihaela Glez PA Abnormal LFTs (Primary Dx) from Last 3 Months Surgical History Surgery [...] Depression Screening 08/17/2024 COVID-19 Vaccine ( season) 2025 05/25/2024, 06/23/2023, 05/12/2022, Additional history exists Influenza [...] quantitative molecular study (12/13/2024 12:11 PM EDT) [facility] HCV Qual Interp Not Detected Not Detected LAB MOLECULAR DIAGNOSTICS METHOD 12/13/2024 3:48 PM EDT [facility] Comment:HCV RNA not detected , unable to report quantitative results. Blood Venous blood specimen / Unknown Venipuncture / Unknown 12/13/2024 12:11 PM EDT 12/13/2024 12:35 PM EDT us Daphney Rodriguez ROSS LIFT OPERATOR LAB BLOOD ORDERABLES Final Re sult [facility] [address] [place] [address], [place] [phone] * (ABNORMAL) Comprehensive metabolic panel (12/13/2024 12:11 PM EDT) [facility] Sodium 142 133 - 145 mmol/L LAB CHEMISTRY METHOD 12/13/2024 2:47 PM [facility] Potassium 4.1 3.5 - 5.5 mmol/L LAB CHEMISTRY METHOD 12/13/2024 2:47 PM [facility] Chloride 106 96 - 110 [...] LAB CHEMISTRY METHOD 12/13/2024 2:47 PM EDT [facility] eGFR 54(L) >=60 mL/min/1. 73m2 LAB CHEMISTRY METHOD 12/13/2024 2:47 PM T [facility] Comment:Calculation based on the Chronic Kidney Disease Epidemiology Collaboration (CKD-EPI) equation refit without adjustment for race. BUN/Creatinine Ratio 14.3 LAB CHEMISTRY METHOD 12/13/2024 2:47 PM T [facility] Calcium 9.1 8.5 - 10.5 [...] 2:47 PM [facility] Total Bilirubin 0.4 0.0 - 1.4 mg/dL LAB CHEMISTRY METHOD 12/13/2024 2:47 PM T [facility] Blood Venous blood specimen / Unknown Venipuncture / Unknown 12/13/2024 12:11 PM EDT 12/13/2024 12:35 PM EDT us Daphney Rodriguez NP LAB BLOOD ORDERABLES Final Re sult [facility] [address] [place] [address], [place] [phone] from Last 3 Months or Most Recently Relevant to Health Maintenance Insurance [employer] [address] [place] [address] Care Teams Shingle Sawyer Relationship Specialty Start Date End Date Mily Lim PA [address] [place] [address] PCP - General Physician Coil Connector 11/10/24
--- OUTSIDE RECORDS SUMMARY | 2025-04-27 15:34 | XMS_ITS | Patient Health Record ---
Author Organization [facility] Address [address] [place] [address] Care Team Providers Care Credit Administrator Name Role Phone Maryanne DAVID, Davida Primary Care Provider Unav Juan F Burroughs Unavailable [phone] Allergies Allergen (clinical drug ingredient) Drug/Non Drug [...] Treatment Pending Test Test Name Order Date [id number] Destruction, -03/07/2014 [id number] Destruction, -03/31/2014 [id number] Destruction, -05/30/2014 [id number] Destruction, -07/11/2014 Insurance Providers Payer Name Payer Address Payer Phone Subscriber Number Group Number Insured Name Patient Relationship to Insured Coverage Start Date Coverage End Date [facility] [address] [facility] [place] [address] [id number] Melanie Barillas Self - patient is the insured Medical (General) History Medical History History ICD Code Back and Hip pain Migraines Hypertension Reflux Measles Mumps Chicken pox Surgical History Surgery Date(Month/Year) hand/wrist 2012,2010 rotator cuff tear repair 2008 hysterectomy 1979 heel surgery 1968 appendectomy 1969
== END 2025-04-27 11:54 | disposition home or self-care (01) ==
PROVIDERS: PCP Physician Assistant Medical; Visit Provider Nurse Practitioner Family
DX: R21 Rash and other nonspecific skin eruption (principal)

== ENCOUNTER 2025-06-08 10:48 | Outpatient (AMB) | payer OTHER, SELFPAY ==
--- NOTE | 2025-06-08 11:19 | A.OFFPC_ITS ---
Vital Signs 06/08/25 11:25 Height 5 ft 3 in Weight 155 lb 4 oz BMI 27.5 BP 116/72 Blood Pressure Location Rt brachial Position Sitting Respiration 18 Pulse 76 Pulse Source Pulse Oximeter Temp 97.7 F Temp Source Temporal Artery Scan Pulse Oximetry (%) 97 Oxygen Delivery Method Room Air Intake Visit Reasons: Post op for heart valve surgery and pace maker hollis Intake Note: Melanie presents for a post op for heart valve and pace maker procedure. Patient needs test strips for her glucometer. Allergies Penicillins Allergy (Intermediate, Verified 06/08/25 11:21) Hives Sulfa (Sulfonamide Antibiotics) Allergy (Intermediate, Verified 06/08/25 11:21) Hives erythromycin base Allergy (Mild, Verified 06/08/25 11:21) Hives azithromycin Adverse Reaction (Intermediate, Verified 06/08/25 11:21) Vomiting doxycycline Adverse Reaction (Intermediate, Verified 06/08/25 11:21) Vomiting IVP Dye Allergy (Uncoded 06/08/25 11:21) Shortness of Breath Medication List - Last Reconciled 06/10/25 by TYLER Villafana alprazolam (Xanax) 0.5 mg PO BID PRN aspirin (Adult Low Dose Aspirin) 81 mg PO DAILY blood sugar diagnostic (FreeStyle Lite Strips) 1 strip miscellaneous DAILY blood-glucose meter (FreeStyle Lite Meter kit) to monitor blood glucose once daily blood-glucose meter (FreeStyle Lite Meter kit) check glucose once daily sadltmv-tuqsubfcc-zbrc tabs PO carvedilol 6.25 mg PO BID cholecalciferol (vitamin D3) 50 mcg PO QWEEK dapagliflozin propanediol (Farxiga) 10 mg PO DAILY docusate sodium (Colace) 100 mg PO DAILY PRN lancets (FreeStyle Lancets) to check glucose once daily levothyroxine 100 mcg PO DAILY multivitamin (Daily Multi-Vitamin tablet) 1 tab PO DAILY omeprazole 20 mg PO BID pyridoxine (vitamin B6) 100 mg PO DAILY rosuvastatin 5 mg PO DAILY [sacubitril 20 PO] semaglutide (Ozempic) 0.25 mg (0.368 mL) subcut QWEEK spironolactone 12.5 mg PO DAILY trazodone 50 mg PO BEDTIME Tobacco use date assessed: 06/08/25 Fall risk assessment: No Falls in past year Last assessed Fall Risk: 06/08/25 Dental Screening Dental Screen Date: 06/08/25 Did you have a dental visit in the last 12 months?: Yes Did you have a dental problem in the last 6 months where you did not have access to dental care?: No Was dental information given to patient?: Patient has dentist HPI HPI Comments History of Present Illness Details The patient is a 80-year-old female with a past medical history of hepatic steatosis, elevated liver enzymes, aortic valve stenosis, vitamin-D deficiency, asthma, prediabetes, hypertension and hypothyroidism presenting for hospital follow up. Aortic stenosis-followed by Cardiology, Dr. Naidu. Part of [facility] trial TAVR program. Underwent TAVR and was subsequently diagnosed with a 3rd degree heart block (11 second pause associated with dizziness and nausea). Patient now s/p pacemaker implantation with Dr. Carmen. She feels great. No further ENGLE, dizziness and no CP or palpitations. She will have echo q3 months for the first post op year as part of [facility]. Anticipates starting cardiac rehab at [facility]. The patient had elevated liver enzymes. She reported drinking 1-2 cocktails per night. AST and ALT were 40 and 45 respectively on 09/08/2024. She repeated them on 10/27/2024, and they are now 38 and 39 respectively. Pancreatic enzymes are normal. She had negative testing for hepatitis a, B and C infection. She had an ultrasound with elastography on 10/14/2024 which demonstrated mild hepatomegaly, hepatic steatosis and elastography findings indicative of compensated advanced chronic liver disease. She saw [facility] in November. They recommended working on a low-cholesterol diet and avoidance of alcohol. She is also taking Ozempic. She has prediabetes. She is taking Ozempic 0.25 mg weekly. She's lost 20 pounds since starting this medication. Hyperlipidemia is managed with rosuvastatin at 5 mg, previously adjusted due to muscle cramping. Hypothyroidism is treated with levothyroxine 100 mcg daily. ROS: Constitutional: No unexplained weight loss, fever, chills, fatigue or night sweats. Eyes: No vision changes, blurry vision, double vision Respiratory: No shortness of breath, cough or sputum production. Cardiovascular: No chest pain, chest pressure or chest discomfort. No palpitations or pedal edema. Gastrointestinal: No anorexia, nausea, vomiting or diarrhea. No abdominal pain or blood in stool. Genitourinary: No dysuria, hematuria, urinary frequency. Neurologic: No headache, dizziness, syncope Skin: No rash Endocrine: No cold or heat intolerance. No polyuria or polydipsia. Psychiatric: No depression = PE: Constitutional: Alert, in no distress. Head: Normocephalic. Neck: Supple, Full range of motion. No lymphadenopathy. No palpable thyroid masses. Respiratory: Clear to auscultation. Cardiovascular: S1 S2 regular. Neurologic: No focal neurological deficits. Extremities: Warm and well perfused. Trace bilateral ankle edema. Psychiatric: Normal mood and affect. [facility] Medical History (Updated 06/10/25 @ 10:49 by TYLER Villafana) Third degree heart block Hypercholesteremia Rash Abnormal abdominal CT scan Elevated LFTs Abnormal liver diagnostic imaging Hepatic steatosis Elevated liver enzymes Colon polyps Vitamin D deficiency Prediabetes Essential hypertension Hypothyroidism Arthritis Thyroid disease Aortic valvar stenosis Acid reflux Asthma Surgical History (Updated 06/10/25 @ 10:49 by TYLER Villafana) Status cardiac pacemaker S/P TAVR (transcatheter aortic valve replacement) History of hand surgery Hx of appendectomy History of hysterectomy H/O rotator cuff surgery Family History Mother High blood pressure High cholesterol Colon cancer Father High blood pressure High cholesterol Prostate cancer Paternal Grandmother High blood pressure Brother High blood pressure High cholesterol Pancreatic cancer Sister High blood pressure High cholesterol Breast cancer Social History (Updated 06/08/25 @ 11:24 by Ashley Mckeon CMA) Housing: House Alcohol intake: current Patient Tobacco Use Status: Former Tobacco user Cigarettes Per Day: 4 Years Smoked: 2 e-Cigarette/Vaping Use: Never Used Second Hand Smoke Exposure: No service: No Current occupational status: retired Current occupational exposures/hazards: No Cognitive needs: No Hearing needs: No Vision needs: Yes Questionnaire Thrive Questionnaire Date Thrive assessed: 09/07/24 I am a: Patient What is your living situation today?: I have a steady place to live Within the past 12 months, did the food you bought not last and you didn't have the money to get more?: Never true Within the past 12 months, did you worry whether your food would run out before you got money to buy more?: Never true Do you have trouble paying for medicines?: No Do you have trouble getting transportation to medical appointments?: No Do you have trouble paying your heating and electricity bill?: No Do you have trouble taking care of your child, family member or friend?: No Do you have trouble with day-to-day activities such as bathing, preparing meals, shopping, managing finances, etc.?: No Are you currently unemployed and looking for a job?: No Are you interested in more education?: No Please select the resources that you would like help with: None Currently or been in a relationship where the following occur: No concerns reported THRIVE Score: 0 FRANKI-7 AMB Questionnaire FRANKI-7 Date FRANKI - 7 assessed: 09/08/24 Source: Developed by Drs. Michele Chahal, Charlotte Garcia, Axel Bianchi and colleagues, with an educational mo from [employer]. Physical exam (Primary Care) Vital Signs: Last Vital Signs Temp 97.7 F 06/08/25 11:25 Pulse 76 06/08/25 11:25 Resp 18 06/08/25 11:25 BP 116/72 06/08/25 11:25 Pulse Ox 97 06/08/25 11:25 Oxygen Delivery Method Room Air 06/08/25 11:25 BMI result Body Mass Index 27.5 Tobacco/Smoking Status: Tobacco use Status Tobacco use date assessed 06/08/25 06/08/25 11:27 Patient Tobacco Use Status Former Tobacco user 06/08/25 11:24 e-Cigarette/Vaping Use Never Used 06/08/25 11:24 Thrive Assessment: Date of Thrive Assessment Date Thrive assessed 09/07/24 06/08/25 11:20 Currently or been in a relationship where the following occur: No concerns reported Coding Level of Care Code Est Pt Level 5 (66517) Complex EM visit Add On G2211 Diagnoses Nonrheumatic aortic valve stenosis I35.0 Cardiac valve disease etiology: nonrheumatic S/P TAVR (transcatheter aortic valve replacement) Z95.2 Status cardiac pacemaker Z95.0 Third degree heart block I44.2 Essential hypertension I10 Acquired hypothyroidism E03.9 Hypothyroidism type: acquired Prediabetes R73.03 Hepatic steatosis K76.0 Time Spent (min) 46 Comment review hospital notes, complete documentation, seeing the pt Assessment & Plan Assessment & Plan (1) Aortic valvar stenosis: Code(s): I35.0 - Nonrheumatic aortic (valve) stenosis Category: Medical Qualifiers: Cardiac valve disease etiology: nonrheumatic Qualified Code(s): I35.0 - Nonrheumatic aortic (valve) stenosis Plan: S/p TAVR and doing well. She is followed by the [facility] and in the [facility] study. (2) S/P TAVR (transcatheter aortic valve replacement): Comment: 2024 Code(s): Z95.2 - Presence of prosthetic heart valve Category: Surgical (3) Status cardiac pacemaker: Code(s): Z95.0 - Presence of cardiac pacemaker Category: Surgical (4) Third degree heart block: Code(s): I44.2 - Atrioventricular block, complete Category: Medical (5) Essential hypertension: Code(s): I10 - Essential (primary) hypertension Category: Medical Plan: Well-controlled. Continue low-sodium diet, avoidance of caffeine and current medication. (6) Hypothyroidism: Code(s): E03.9 - Hypothyroidism, unspecified Category: Medical Qualifiers: Hypothyroidism type: acquired Qualified Code(s): E03.9 - Hypothyroidism, unspecified Plan: Continue levothyroxine. (7) Prediabetes: Code(s): R73.03 - Prediabetes Category: Medical Plan: Complications of diabetes reviewed with the patient. Decrease carbs, sugars and portion sizes. Decrease alcohol use. Congratulated on weight loss. Continue Ozempic 0.25 mg weekly. = Signs and symptoms and treatment of hypoglycemia reviewed with the patient. (8) Hepatic steatosis: Code(s): K76.0 - Fatty (change of) liver, not elsewhere classified Category: Medical Plan: Followed by Gastroenterology. Continue efforts at weight loss. Continue GLP 1. Avoid alcohol. Plan She has her annual scheduled for follow up. Orders: Orders Vitamin D 25-OH (D2 and D3) Today E03.9 - Hypothyroidism, unspecified, E55.9 - Vitamin D deficiency, unspecified, E78.00 - Pure hypercholesterolemia, unspecified, I10 - Essential (primary) hypertension, K76.0 - Fatty (change of) liver, not elsewhere classified, R73.03 - Prediabetes, R79.89 - Other specified abnormal findings of blood chemistry TSH reflex Free T4 Today E03.9 - Hypothyroidism, unspecified, E55.9 - Vitamin D deficiency, unspecified, E78.00 - Pure hypercholesterolemia, unspecified, I10 - Essential (primary) hypertension, K76.0 - Fatty (change of) liver, not elsewhere classified, R73.03 - Prediabetes, R79.89 - Other specified abnormal findings of blood chemistry Complete Blood Count Auto Diff Today E03.9 - Hypothyroidism, unspecified, E55.9 - Vitamin D deficiency, unspecified, E78.00 - Pure hypercholesterolemia, unspecified, I10 - Essential (primary) hypertension, K76.0 - Fatty (change of) liver, not elsewhere classified, R73.03 - Prediabetes, R79.89 - Other specified abnormal findings of blood chemistry Comprehensive Met. Panel Today E03.9 - Hypothyroidism, unspecified, E55.9 - Vitamin D deficiency, unspecified, E78.00 - Pure hypercholesterolemia, unspecified, I10 - Essential (primary) hypertension, K76.0 - Fatty (change of) liver, not elsewhere classified, R73.03 - Prediabetes, R79.89 - Other specified abnormal findings of blood chemistry Vitamin B12 Today E03.9 - Hypothyroidism, unspecified, E55.9 - Vitamin D deficiency, unspecified, E78.00 - Pure hypercholesterolemia, unspecified, I10 - Essential (primary) hypertension, K76.0 - Fatty (change of) liver, not elsewhere classified, R73.03 - Prediabetes, R79.89 - Other specified abnormal findings of blood chemistry, Z91.89 - Other specified personal risk factors, not elsewhere classified Microalbumin, Random (w Creat) Today E03.9 - Hypothyroidism, unspecified, E11.9 - Type 2 diabetes mellitus without complications, E55.9 - Vitamin D deficiency, unspecified, E78.00 - Pure hypercholesterolemia, unspecified, I10 - Essential (primary) hypertension, K76.0 - Fatty (change of) liver, not elsewhere classified, R73.03 - Prediabetes, R79.89 - Other specified abnormal findings of blood chemistry Hemoglobin A1c Today E03.9 - Hypothyroidism, unspecified, E55.9 - Vitamin D deficiency, unspecified, E78.00 - Pure hypercholesterolemia, unspecified, I10 - Essential (primary) hypertension, K76.0 - Fatty (change of) liver, not elsewhere classified, R73.03 - Prediabetes, R73.9 - Hyperglycemia, unspecified, R79.89 - Other specified abnormal findings of blood chemistry Lipid Panel Today E03.9 - Hypothyroidism, unspecified, E55.9 - Vitamin D deficiency, unspecified, E78.00 - Pure hypercholesterolemia, unspecified, E78.5 - Hyperlipidemia, unspecified, I10 - Essential (primary) hypertension, K76.0 - Fatty (change of) liver, not elsewhere classified, R73.03 - Prediabetes, R79.89 - Other specified abnormal findings of blood chemistry Medications: New blood sugar diagnostic (FreeStyle Lite Strips) 1 strip miscellaneous DAILY 100 strips 5RF Refilled alprazolam (Xanax) 0.5 mg PO BID PRN 20 tabs 0RF anxiety
[2025-06-08 11:25] VITALS: BP 116/72; PULSE 76; RESP 18; TEMP 36.5; O2SAT 97; BMI 27.5
--- OUTSIDE RECORDS SUMMARY | 2025-06-08 13:14 | XMS_ITS | Clinical Summary ---
Author Organization [facility] Facility Address [address] [place] [address] Care Team Providers Care Labelling Machine Operator Name Role Phone Mily Lim PA-C Primary Care Provider [phone] Social History Tobacco Use Types Packs/Day Years [...] patient's age to complete this topic Insurance [facility] Care Teams Labelling Machine Operator Relationship Specialty Start Date End Date Mily Lim PA-C [address] [place] [id number] PCP - General Internal Medicine 03/06/22
--- OUTSIDE RECORDS SUMMARY | 2025-06-08 13:15 | XMS_ITS | Clinical Summary ---
Author Organization [facility] [address] [facility] Address [address] [place] [address] Phone Care Team Providers Care Cutter V Groove Name Role Phone Mily Lim Primary Care Provider [phone] Allergies Active Allergy Reactions Criticality Noted Date [...] AM EDT Office Visit Gastroenterology - [address] [facility] [address] [facility] [address] [place] [address] Mihaela Glez PA Abnormal LFTs [...] quantitative molecular study (12/13/2024 12:11 PM EDT) [facility] HCV Qual Interp Not Detected Not Detected LAB MOLECULAR DIAGNOSTICS METHOD 12/13/2024 3:48 PM EDT [facility] Comment:HCV RNA not detected , unable to report quantitative results. Blood Venous blood specimen / Unknown Venipuncture / Unknown 12/13/2024 12:11 PM EDT 12/13/2024 12:35 PM EDT us Daphney Rodriguez [facility] BLOOD ORDERABLES Final Re sult [facility] [address] [place] [address], [place] [phone] * (ABNORMAL) Comprehensive metabolic panel (12/13/2024 12:11 PM EDT) [facility] Sodium 142 133 - 145 mmol/L LAB CHEMISTRY METHOD 12/13/2024 2:47 PM [facility] Potassium 4.1 3.5 - 5.5 mmol/L LAB CHEMISTRY METHOD 12/13/2024 2:47 PM [facility] Chloride 106 96 - 110 mmol/L LAB CHEMISTRY METHOD 12/13/2024 2:47 PM [facility] CO2 27 21 - 32 mmol/L LAB CHEMISTRY METHOD 12/13/2024 2:47 PM [facility] Anion Gap 9 3 - 11 LAB CHEMISTRY METHOD 12/13/2024 2:47 PM [facility] Glucose 110(H) 70 - 100 mg/dL LAB CHEMISTRY METHOD 12/13/2024 2:47 PM [facility] BUN 15 5 - 25 mg/dL LAB CHEMISTRY METHOD 12/13/2024 2:47 PM [facility] Creatinine 1.05 0.50 - 1.10 mg/dL LAB CHEMISTRY METHOD 12/13/2024 2:47 PM EDT [facility] eGFR 54(L) >=60 mL/min/1. 73m2 LAB CHEMISTRY METHOD 12/13/2024 2:47 PM T [facility] Comment:Calculation based on the Chronic Kidney Disease Epidemiology Collaboration (CKD-EPI) equation refit without adjustment for race. BUN/Creatinine Ratio 14.3 LAB CHEMISTRY METHOD 12/13/2024 2:47 PM T [facility] Calcium 9.1 8.5 - 10.5 mg/dL LAB CHEMISTRY METHOD 12/13/2024 2:47 PM [facility] AST (SGOT) 30 10 - 42 unit/L LAB CHEMISTRY METHOD 12/13/2024 2:47 PM [facility] ALT (SGPT) 44 10 - 60 unit/L LAB CHEMISTRY METHOD 12/13/2024 2:47 PM [facility] Alkaline Phosphatase 50 42 - 121 unit/L LAB CHEMISTRY METHOD 12/13/2024 2:47 PM [facility] Total Protein 7.0 6.0 - 8.0 g/dL LAB CHEMISTRY METHOD 12/13/2024 2:47 PM [facility] Albumin 3.8 3.2 - 5.0 g/dL LAB CHEMISTRY METHOD 12/13/2024 2:47 PM [facility] Total Bilirubin 0.4 0.0 - 1.4 mg/dL LAB CHEMISTRY METHOD 12/13/2024 2:47 PM T [facility] Blood Venous blood specimen / Unknown Venipuncture / Unknown 12/13/2024 12:11 PM EDT 12/13/2024 12:35 PM EDT us Daphney Rodriguez NP LAB BLOOD ORDERABLES Final Re sult [facility] [address] [place] [address], [place] [phone] from Last 3 Months or Most Recently Relevant to Health Maintenance Insurance [employer] [address] [place] [address] Care Teams Cutter V Groove Relationship Specialty Start Date End Date Mily Lim PA [address] [place] [address] PCP - General Physician Balance Recesser 11/10/24
== END 2025-06-08 11:51 | disposition home or self-care (01) ==
LOC: HO.HMCFM 10:49
PROVIDERS: PCP Physician Assistant Medical; Visit Provider Physician Assistant Medical
DX: I35.0 Nonrheumatic aortic (valve) stenosis (principal); Z95.2 Presence of prosthetic heart valve; I44.2 Atrioventricular block, complete; Z95.0 Presence of cardiac pacemaker; I10 Essential (primary) hypertension; E03.9 Hypothyroidism, unspecified; R73.03 Prediabetes; K76.0 Fatty (change of) liver, not elsewhere classified